=== PATIENT | male | born 1935 | race Two or more races ===

== ENCOUNTER 2023-07-05 19:17 | Inpatient (IN) | payer MEDICARE, OTHER ==
[~2023-07-05] VITALS: Ht 167.6 cm; Wt 67.5 kg
[2023-07-05 20:05] LABS: Basophils # (auto) 0.1 10 ^3/uL (0-0.2); Basophils % (auto) 0.8 % (0.0-2.0); Eosinophils # (auto) 0.4 10 ^3/uL (0-0.8); Eosinophils % (auto) 2.9 % (0.0-7.0); Hematocrit 38.6 % (41.0-53.0); Hemoglobin 12.9 g/dL (13.5-17.5); Lymphocytes # (auto) 1.5 10 ^3/uL (0.4-5.4); Lymphocytes % (auto) 11.3 % (10.0-50.0); Mean Corpuscular Hemoglobin 30.5 pg (28.0-32.0); Mean Corpuscular Hgb Conc. 33.3 g/dL (32.0-36.0); Mean Corpuscular Volume 91.6 fL (80.0-100.0); Monocytes # (auto) 0.7 10 ^3/uL (0-1.3); Neutrophils # (auto) 10.7 10 ^3/uL (1.6-8.6); Red Blood Cells 4.21 10^6/uL (4.5-5.90); Red Cell Distribution Width 15.8 % (11.8-14.3); White Blood Cell 13.4 10^3/uL (4.4-10.8)
[2023-07-05] MEDS ORDERED: PANTOPRAZOLE 40 MG/10 ML VIAL INJ IV ONE (20:15)
[2023-07-05] MEDS ORDERED: SODIUM CHLORIDE 0.9% 1,000 ML IV ONE (20:15)
[2023-07-05] MEDS ORDERED: ONDANSETRON HCL 4 MG/2 ML VIAL IV ONE (20:15)
[2023-07-05] MEDS ORDERED: PANTOPRAZOLE 40mg/50ML NS AE 50 ML IV ONE (20:15)
[2023-07-05 20:19] LABS: Alanine Aminotransferase 19 U/L (7-40); Albumin 3.5 g/dL (3.2-4.8); Alkaline Phosphatase 76 U/L (46-116); Anion Gap 7 (5-15); Aspartate Aminotransferase 17 U/L (13-40); Blood Urea Nitrogen 34 mg/dL (9-23); Calcium 8.5 mg/dL (8.7-10.4); Carbon Dioxide 25 mmol/L (20-30); Chloride 107 mmol/L (98-107); Glucose 124 mg/dL (74-106); Magnesium 1.6 mg/dL (1.6-2.6); Potassium 4.8 mmol/L (3.5-5.1); Sodium 139 mmol/L (136-145)
[2023-07-05 20:20] LABS: Bilirubin, Total 0.7 mg/dL (0.2-1.0); Total Protein 5.8 g/dL (5.7-8.2)
[2023-07-05 20:47] LABS: INR 1.09 (0.9-1.15); Partial Thromboplastin Time 25.2 SEC (24.5-34.5); Prothrombin Time 11.4 sec (9.3-11.8)
[2023-07-05] MEDS ORDERED: IOHEXOL 350 MG/ML 100ML IJ ONE (21:05)
[2023-07-05 21:55] LABS: Blood Alcohol < 3.0 mg/dL (<10); Lipase 35 U/L (12-53)
[2023-07-05 22:03] LABS: Lactic Acid w/Reflex 2.6 mmol/L (0.4-2.0)
[2023-07-05 23:30] VITALS: PULSE 53; RESP 29; O2SAT 100
[2023-07-05 23:39] LABS: Urine Bacteria NONE SEEN /hpf (None Seen); Urine Blood Negative /uL (Negative); Urine Clarity Clear (Clear); Urine Color Yellow (Yellow); Urine Protein, UAD 1+ (Negative); Urine Urobilinogen Normal (Negative); Urine WBC <1 /hpf (0 - 3)
[2023-07-05 23:43] LABS: Amphetamine Screen, Urine Neg (NEGATIVE); Barbiturate Scree,Urine Pos (NEGATIVE); Benzodiazephine Screen, Urine Neg (NEGATIVE); Cannabinoid Screen, Urine Neg (NEGATIVE); Cocaine Screen, Urine Neg (NEGATIVE); Opiate Scree,Urine Neg (NEGATIVE); Phencyclidine Screen, Urine Neg (NEGATIVE)
[2023-07-05 23:46] LABS: Urine Specific Gravity > 1.050 (1.001-1.035)
[2023-07-06] MEDS ORDERED: ONDANSETRON HCL 4 MG/2 ML VIAL IV PRN (00:30)
[2023-07-06] MEDS: SODIUM CHLORIDE 0.9% 1,000 ML IV SCH ×2 (00:30→14:21)
[2023-07-06] MEDS ORDERED: NITROGLYCERIN 0.4 MG SL TAB SL PRN (00:30)
[2023-07-06] MEDS ORDERED: MORPHINE SULFATE INJ 2 MG/ml SYRG IV PRN (00:30)
[2023-07-06 02:38] LABS: Hematocrit 35.1 % (41.0-53.0); Hemoglobin 11.7 g/dL (13.5-17.5)
[2023-07-06] MEDS: PANTOPRAZOLE 40mg/50ML NS AE 50 ML IV SCH ×5 (04:18→21:40)
[2023-07-06 07:55] VITALS: PULSE 81; RESP 19; O2SAT 95
[2023-07-06] MEDS ORDERED: PANTOPRAZOLE 40mg/50ML NS AE 50 ML IV SCH (09:00)
[2023-07-06] MEDS ORDERED: ACETAMINOPHEN 500 MG TAB PO PRN (14:45)
[2023-07-06] MEDS ORDERED: LORazepam 2MG/ML-1ML VIAL IV PRN (14:45)
[2023-07-06] MEDS ORDERED: THIAMINE 100mg/ml INJ (200mg/2ml VIAL) IV ONE (14:45)
[2023-07-06 15:16] VITALS: PULSE 80; RESP 16; RESP 18; O2SAT 95
[2023-07-06] MEDS ORDERED: AMLO1TAB22 PO (16:03)
[2023-07-06] MEDS ORDERED: TAMS0.4C36 PO (16:03)
[2023-07-06] MEDS ORDERED: FERR325T20 PO (16:03)
[2023-07-06] MEDS ORDERED: ESCI1TAB36 PO (16:03)
[2023-07-06] MEDS ORDERED: CYAN100042 PO (16:03)
[2023-07-06 17:00] VITALS: BP 148/77; PULSE 80; RESP 16; TEMP 98.1; O2SAT 98
[2023-07-06] MEDS ORDERED: DEXTROSE (50%) 50ML SYRG IV PRN (17:30)
[2023-07-06 22:00] VITALS: BP_SYST 146; BP_SYST 95; BP_DIAS 146; BP_DIAS 76; PULSE 80; RESP 18; TEMP 98.3; O2SAT 95
[2023-07-06] MEDS ORDERED: ACCU-CHEK COMFORT CURVE STRIP VI SCH (22:00)
[2023-07-06] MEDS ORDERED: InsuLIN REG 1unit/0.01ml Soln (100units/ml) SC SCH (22:00)
[2023-07-07] VITALS (7 sets, daily range): BP systolic 112–128; BP diastolic 51–66; PULSE 70–94; RESP 16–18; TEMP 98–98.5; O2SAT 93–100
[2023-07-07] MEDS: PANTOPRAZOLE 40mg/50ML NS AE 50 ML IV SCH ×3 (02:39→11:30)
[2023-07-07] MEDS: SODIUM CHLORIDE 0.9% 1,000 ML IV SCH ×2 (03:10→17:44)
[2023-07-07 06:31] LABS: Basophils # (auto) 0.1 10 ^3/uL (0-0.2); Basophils % (auto) 0.8 % (0.0-2.0); Eosinophils # (auto) 0.5 10 ^3/uL (0-0.8); Eosinophils % (auto) 6.2 % (0.0-7.0); Hematocrit 30.1 % (41.0-53.0); Hemoglobin 10.2 g/dL (13.5-17.5); Lymphocytes # (auto) 1.5 10 ^3/uL (0.4-5.4); Lymphocytes % (auto) 20.2 % (10.0-50.0); Mean Corpuscular Hemoglobin 31.1 pg (28.0-32.0); Mean Corpuscular Hgb Conc. 33.9 g/dL (32.0-36.0); Mean Corpuscular Volume 91.8 fL (80.0-100.0); Monocytes # (auto) 0.6 10 ^3/uL (0-1.3); Monocytes % (auto) 8.6 % (0.0-12.0); Neutrophils # (auto) 4.7 10 ^3/uL (1.6-8.6); Neutrophils % (auto) 64.2 % (37.0-80.0); Red Blood Cells 3.28 10^6/uL (4.5-5.90); Red Cell Distribution Width 15.4 % (11.8-14.3); White Blood Cell 7.3 10^3/uL (4.4-10.8)
[2023-07-07 06:50] LABS: Alanine Aminotransferase 12 U/L (7-40); Albumin 3.2 g/dL (3.2-4.8); Alkaline Phosphatase 59 U/L (46-116); Anion Gap 6 (5-15); Aspartate Aminotransferase 15 U/L (13-40); BUN/Creatinine Ratio 25.6 (10.0-20.0); Bilirubin, Total 0.7 mg/dL (0.2-1.0); Blood Urea Nitrogen 21 mg/dL (9-23); Carbon Dioxide 24 mmol/L (20-30); Chloride 113 mmol/L (98-107); Glucose 103 mg/dL (74-106); Sodium 143 mmol/L (136-145); Total Protein 5.3 g/dL (5.7-8.2)
[2023-07-07] MEDS ORDERED: LIDOCAINE VISCOUS 2% 15ML UD ONE (09:14)
[2023-07-07] MEDS: THIAMINE 100mg/ml INJ (200mg/2ml VIAL) IV SCH (10:00)
[2023-07-07] MEDS ORDERED: MIDAZOLAM HCL 2MG/2ML 2ml VIAL (1mg/ml) ONE (11:45)
[2023-07-07] MEDS ORDERED: EPINEPHrine HCL 1 MG/10 ML SYRG ONE (11:57)
[2023-07-07] MEDS ORDERED: ONDANSETRON HCL 4 MG/2 ML VIAL IV PRN (12:15)
[2023-07-07] MEDS ORDERED: PROPOFOL 10 MG/ML 20 ML IV ONE (14:09)
[2023-07-07] MEDS ORDERED: FERR325T24 PO (15:57)
[2023-07-07] MEDS ORDERED: TAMS-35 PO (15:57)
[2023-07-07] MEDS ORDERED: ESCI10TA PO (15:57)
[2023-07-07] MEDS ORDERED: AML5T PO (15:57)
[2023-07-07] MEDS ORDERED: CALC1TAB92 PO (15:57)
[2023-07-07] MEDS ORDERED: SENN1TAB85 PO (15:57)
[2023-07-07] MEDS: SUCRALFATE 1 GM/10 ML ORAL SUSP PO SCH ×2 (17:44→21:17)
[2023-07-07] MEDS: PANTOPRAZOLE 40 MG/10 ML VIAL INJ IV SCH (21:14)
[2023-07-08 05:00] VITALS: BP 108/61; PULSE 78; RESP 18; TEMP 98.2; O2SAT 96
[2023-07-08] MEDS: SUCRALFATE 1 GM/10 ML ORAL SUSP PO SCH ×4 (05:43→21:10)
[2023-07-08] MEDS: SODIUM CHLORIDE 0.9% 1,000 ML IV SCH ×2 (05:45→18:12)
[2023-07-08 05:48] LABS: Basophils # (auto) 0.1 10 ^3/uL (0-0.2); Basophils % (auto) 0.9 % (0.0-2.0); Eosinophils # (auto) 0.2 10 ^3/uL (0-0.8); Hematocrit 27.3 % (41.0-53.0); Hemoglobin 9.4 g/dL (13.5-17.5); Lymphocytes # (auto) 1.6 10 ^3/uL (0.4-5.4); Lymphocytes % (auto) 15.5 % (10.0-50.0); Mean Corpuscular Hemoglobin 31.9 pg (28.0-32.0); Mean Corpuscular Hgb Conc. 34.3 g/dL (32.0-36.0); Monocytes # (auto) 0.9 10 ^3/uL (0-1.3); Monocytes % (auto) 8.9 % (0.0-12.0); Neutrophils # (auto) 7.4 10 ^3/uL (1.6-8.6); Neutrophils % (auto) 72.7 % (37.0-80.0); Red Blood Cells 2.94 10^6/uL (4.5-5.90); Red Cell Distribution Width 14.9 % (11.8-14.3); White Blood Cell 10.2 10^3/uL (4.4-10.8)
[2023-07-08 05:53] LABS: Anion Gap 5 (5-15); Carbon Dioxide 25 mmol/L (20-30); Chloride 111 mmol/L (98-107); Potassium 3.9 mmol/L (3.5-5.1); Sodium 141 mmol/L (136-145)
[2023-07-08 05:54] LABS: Calcium 7.9 mg/dL (8.7-10.4)
[2023-07-08 05:59] LABS: BUN/Creatinine Ratio 11.8 (10.0-20.0); Blood Urea Nitrogen 10 mg/dL (9-23); Glucose 117 mg/dL (74-106)
[2023-07-08 08:00] VITALS: BP 102/53; PULSE 65; PULSE 76; RESP 18; TEMP 98.6; O2SAT 96
[2023-07-08 09:00] VITALS: BP 102/53; PULSE 76; RESP 18; TEMP 98.6; O2SAT 96
[2023-07-08] MEDS: THIAMINE 100mg/ml INJ (200mg/2ml VIAL) IV SCH (10:18)
[2023-07-08] MEDS: PANTOPRAZOLE 40 MG/10 ML VIAL INJ IV SCH ×2 (10:18→21:10)
[2023-07-08] MEDS ORDERED: hydrALAZINE HCL 20 MG/ML VL IV PRN (11:30)
[2023-07-08 13:00] VITALS: BP 121/64; PULSE 71; RESP 17; TEMP 98.4; O2SAT 97
[2023-07-08 17:00] VITALS: BP 145/68; PULSE 80; RESP 19; TEMP 97.8; O2SAT 96
[2023-07-08 20:00] VITALS: PULSE 74; RESP 18
[2023-07-09] VITALS (7 sets, daily range): BP systolic 102–150; BP diastolic 53–72; PULSE 65–97; RESP 16–18; TEMP 97.8–98.9; O2SAT 96–100
[2023-07-09] MEDS: SUCRALFATE 1 GM/10 ML ORAL SUSP PO SCH ×4 (05:56→22:15)
[2023-07-09 06:05] LABS: Basophils # (auto) 0.1 10 ^3/uL (0-0.2); Basophils % (auto) 1.9 % (0.0-2.0); Eosinophils # (auto) 0.4 10 ^3/uL (0-0.8); Eosinophils % (auto) 6.1 % (0.0-7.0); Hemoglobin 9.3 g/dL (13.5-17.5); Lymphocytes # (auto) 1.4 10 ^3/uL (0.4-5.4); Lymphocytes % (auto) 19.1 % (10.0-50.0); Mean Corpuscular Hemoglobin 31.5 pg (28.0-32.0); Mean Corpuscular Hgb Conc. 34.4 g/dL (32.0-36.0); Mean Corpuscular Volume 91.4 fL (80.0-100.0); Monocytes # (auto) 0.7 10 ^3/uL (0-1.3); Monocytes % (auto) 10.2 % (0.0-12.0); Neutrophils # (auto) 4.5 10 ^3/uL (1.6-8.6); Neutrophils % (auto) 62.7 % (37.0-80.0); Red Blood Cells 2.96 10^6/uL (4.5-5.90); Red Cell Distribution Width 14.5 % (11.8-14.3); White Blood Cell 7.2 10^3/uL (4.4-10.8)
[2023-07-09] MEDS: SODIUM CHLORIDE 0.9% 1,000 ML IV SCH (08:22)
[2023-07-09] MEDS: PANTOPRAZOLE 40 MG/10 ML VIAL INJ IV SCH ×2 (09:48→22:15)
[2023-07-09] MEDS: THIAMINE 100mg/ml INJ (200mg/2ml VIAL) IV SCH (09:48)
[2023-07-10 05:00] VITALS: BP 114/57; PULSE 70; RESP 18; TEMP 98.6; O2SAT 99
[2023-07-10] MEDS: SUCRALFATE 1 GM/10 ML ORAL SUSP PO SCH ×2 (06:08→10:40)
[2023-07-10 07:37] LABS: Basophils # (auto) 0.1 10 ^3/uL (0-0.2); Basophils % (auto) 1.5 % (0.0-2.0); Eosinophils # (auto) 0.4 10 ^3/uL (0-0.8); Eosinophils % (auto) 6.6 % (0.0-7.0); Hematocrit 27.4 % (41.0-53.0); Hemoglobin 9.7 g/dL (13.5-17.5); Lymphocytes # (auto) 1.2 10 ^3/uL (0.4-5.4); Lymphocytes % (auto) 18.3 % (10.0-50.0); Mean Corpuscular Hemoglobin 31.8 pg (28.0-32.0); Mean Corpuscular Hgb Conc. 35.4 g/dL (32.0-36.0); Mean Corpuscular Volume 89.8 fL (80.0-100.0); Monocytes # (auto) 0.7 10 ^3/uL (0-1.3); Neutrophils # (auto) 4.2 10 ^3/uL (1.6-8.6); Neutrophils % (auto) 63.6 % (37.0-80.0); Nucleated Red Blood Cells % 0.1 %; Red Blood Cells 3.05 10^6/uL (4.5-5.90); Red Cell Distribution Width 14.1 % (11.8-14.3); White Blood Cell 6.7 10^3/uL (4.4-10.8)
[2023-07-10 08:00] VITALS: PULSE 75; PULSE 79; RESP 18; O2SAT 96
[2023-07-10 09:00] VITALS: BP 115/77; PULSE 79; RESP 18; TEMP 97.7; O2SAT 96
[2023-07-10] MEDS: PANTOPRAZOLE 40 MG/10 ML VIAL INJ IV SCH (10:40)
[2023-07-10] MEDS: THIAMINE 100mg/ml INJ (200mg/2ml VIAL) IV SCH (10:41)
[2023-07-10] MEDS ORDERED: PANT40TA2 PO (11:27)
[2023-07-10] MEDS ORDERED: SUCR1SUS26 PO (11:27)
[2023-07-10 13:00] VITALS: BP 147/75; PULSE 102; RESP 18; TEMP 97.2; O2SAT 95
[2023-07-10 13:30] VITALS: BP 147/75; PULSE 104; RESP 18; TEMP 97.2; O2SAT 95
[2023-07-10 15:25] VITALS: BP 147/75; PULSE 104; RESP 18; TEMP 97.2; O2SAT 95
== END 2023-07-10 16:04 | disposition home or self-care (01) | DRG 374 ==
LOC: EDBD 19:17 → ER 19:17 → TELE 07-06 00:26 → TELE-WESTW 07-06 15:12
PROVIDERS: ADMIT Internal Medicine; ATTEND Internal Medicine
PROC: 0DB78ZX Excision of Stomach, Pylorus, Via Natural or Artificial Opening Endoscopic, Diagnostic (ICD-10-PCS; principal; 2023-07-07 11:40)
DX: C16.9 Malignant neoplasm of stomach, unspecified (principal); K25.4 Chronic or unspecified gastric ulcer with hemorrhage; K44.9 Diaphragmatic hernia without obstruction or gangrene; I10 Essential (primary) hypertension; D64.9 Anemia, unspecified; K80.20 Calculus of gallbladder without cholecystitis without obstruction; K21.9 Gastro-esophageal reflux disease without esophagitis; F10.10 Alcohol abuse, uncomplicated; Z79.82 Long term (current) use of aspirin
CPT/HCPCS: 36415; 71045; 71260; 74177; 80048; 80053; 80307; 80320; 81001; 82270; 83540; 83550; 83605; 83690; 83735; 83880; 84484; 85014; 85018; 85025; 85610; 85730; 86850; 86900; 86901; 93005; 93306; 97110; 97116; 97163; 97530; 99291; C9113; G0378; J2250; J2405; J2704

== ENCOUNTER 2024-04-08 10:41 | Day surgery (SDC) | payer MEDICARE, OTHER ==
[2024-04-06 11:08] LABS: Basophils # (auto) 0.1 10 ^3/uL (0-0.2); Eosinophils # (auto) 0.2 10 ^3/uL (0-0.8); Eosinophils % (auto) 3.3 % (0.0-7.0); Hematocrit 41.6 % (41.0-53.0); Hemoglobin 14.1 g/dL (13.5-17.5); Lymphocytes # (auto) 1.5 10 ^3/uL (0.4-5.4); Lymphocytes % (auto) 23.9 % (10.0-50.0); Mean Corpuscular Hemoglobin 30.9 pg (28.0-32.0); Mean Corpuscular Hgb Conc. 33.8 g/dL (32.0-36.0); Mean Corpuscular Volume 91.5 fL (80.0-100.0); Monocytes # (auto) 0.5 10 ^3/uL (0-1.3); Monocytes % (auto) 8.2 % (0.0-12.0); Neutrophils # (auto) 3.9 10 ^3/uL (1.6-8.6); Neutrophils % (auto) 63.6 % (37.0-80.0); Nucleated Red Blood Cells % 0.1 %; Red Blood Cells 4.55 10^6/uL (4.5-5.90); White Blood Cell 6.1 10^3/uL (4.4-10.8)
[2024-04-06 11:27] LABS: INR 1.06 (0.9-1.15); Partial Thromboplastin Time 27.1 SEC (24.5-34.5); Prothrombin Time 11.2 sec (9.3-11.8)
[2024-04-06 11:43] LABS: Alanine Aminotransferase 13 U/L (7-40); Alkaline Phosphatase 78 U/L (46-116); Anion Gap 6 (5-15); Aspartate Aminotransferase 13 U/L (13-40); BUN/Creatinine Ratio 21.8 (10.0-20.0); Blood Urea Nitrogen 17 mg/dL (9-23); Calcium 9.2 mg/dL (8.5-10.1); Carbon Dioxide 24 mmol/L (20-30); Chloride 111 mmol/L (98-107); Glucose 102 mg/dL (74-106); Potassium 3.8 mmol/L (3.5-5.1); Sodium 141 mmol/L (136-145)
[2024-04-06 11:44] LABS: Bilirubin, Total 0.8 mg/dL (0.2-1.0); Total Protein 6.4 g/dL (5.7-8.2)
[~2024-04-08] VITALS: Ht 167.6 cm; Wt 64.4 kg
[~2024-04-08 10:41] MED LIST: ACE3T PO; AML5T PO; CALC1TAB92 PO; CYAN100042 PO; ESCI10TA PO; FERR325T24 PO; GLUC500T48 PO; PANT40TA2 PO; SUCR1SUS26 PO; TAMS-35 PO; TEST200I32 IJ; TEST30SO2 TD
[2024-04-08] MEDS ORDERED: SODIUM CHLORIDE LOCK 10 ML ONE (12:03)
[2024-04-08 12:26] VITALS: TEMP 97.7
[2024-04-08 14:09] VITALS: PULSE 74; RESP 12; O2SAT 97
[2024-04-08] MEDS: LIDOCAINE VISCOUS 2% 15ML UD ONE (14:11)
[2024-04-08] MEDS: diphenhdrAMINE HCL 50 MG/1 ML VL ONE (14:13)
[2024-04-08] MEDS: fentaNYL CITRATE 100 MCG/2 ML VL ONE (14:13)
[2024-04-08] MEDS: MIDAZOLAM HCL 5 MG/ML-1ML VIAL ONE (14:13)
[2024-04-08 14:26] VITALS: O2SAT 97
[2024-04-08 15:01] VITALS: BP 144/70; PULSE 72; RESP 14; O2SAT 96
== END 2024-04-08 15:07 | disposition home or self-care (01) ==
LOC: GI 10:41
PROVIDERS: ATTEND Internal Medicine Gastroenterology
DX: C16.3 Malignant neoplasm of pyloric antrum (principal); K21.9 Gastro-esophageal reflux disease without esophagitis; I10 Essential (primary) hypertension; K44.9 Diaphragmatic hernia without obstruction or gangrene; M19.90 Unspecified osteoarthritis, unspecified site; Z86.2 Personal history of diseases of the blood and blood-forming organs and certain disorders involving the immune mechanism; Z87.11 Personal history of peptic ulcer disease; Z80.8 Family history of malignant neoplasm of other organs or systems; Z80.42 Family history of malignant neoplasm of prostate; Z79.899 Other long term (current) drug therapy; Z98.890 Other specified postprocedural states
CPT/HCPCS: 36415; 43239; 80053; 85025; 85610; 85730; 88305; J1200; J2250; J3010; J7030

== ENCOUNTER 2024-08-30 07:37 | Inpatient (IN) | payer MEDICARE, OTHER ==
[~2024-08-30] VITALS: Ht 152.4 cm; Wt 51.4 kg
--- NOTE | 2024-08-30 07:45 | ED.PDOC ---
History of Present Illness HPI Comments 89-year-old male with PMHx Stomach Cancer presents with a chief complaint of dizziness. Patient states that he is undergoing chemotherapy for his stomach cancer and last had treatment on Thursday (08/28/2024). Patient describes his dizziness as the room is spinning. Per EMS, patient is orthostatic positive. Hollis willis is alert and oriented x 4. Time Seen by MD: 07:36 Reviewed Notes: Medications, Allergies Allergies: Coded Allergies: NO KNOWN ALLERGIES (Unverified , 07/05/23) Home Meds Active Scripts Pantoprazole Sodium Sesquihydr (Protonix) 40 Mg Tab, 40 MG PO BID for 30 Days, #60 TAB 2 Refills Prov:MISHEL PERRY MD 07/10/23 Sucralfate (CARAFATE SUSP) 1 Gm/10 Ml Ss, 1 GM PO QIDACHS for 30 Days, #120 ML 2 Refills Prov:MISHEL PERRY MD 07/10/23 Reported Medications Testosterone (Testosterone Topical Solu) 30 Mg/Act [place], 50 MG TD DAILY, ML 04/06/24 Testosterone Cypionate (Testosterone Cypionate) 200 Mg/Ml Inj, 0.5 MG IJ DAILY, INJ 04/06/24 Acetaminophen W/ Codeine (Tylenol W/Cod #3) 1 Tab Tb, 1 TAB PO TIDP, TAB 04/06/24 Glucosamine Hydrochloride (GLUCOSAMINE) 500 Mg Tab, 500 MG PO DAILY, TAB 04/06/24 Calcium Carbonate (Calcium) 600 Mg Tab, 1 TAB PO BID, % 07/07/23 Tamsulosin Hcl (Flomax) 0.4 Mg Cap, 1 CAP PO QPM, % 07/07/23 Ferrous Sulfate (Ferrous Sulfate) 325 Mg Tab, 1 TAB PO BIDWM, % 07/07/23 Escitalopram Oxalate (Lexapro) 10 Mg Tab, 1 TAB PO DAILY, % 07/07/23 Amlodipine Besylate (NORVASC TABLET) 5 Mg Tb, 1 TAB PO DAILY, % 07/07/23 Cyanocobalamin (Vitamin B-12) 1,000 Mcg Tab, 1 TAB PO DAILY 07/06/23 Information Source: Patient Mode of Arrival: EMS Severity: Moderate Timing: Hours Duration: Since onset Prehospital treatment: None Past Medical History PAST MEDICAL HISTORY: Cancer (STOMACH) Family History Family History: Reviewed,noncontributory to illness Social History Smoker: Non-Smoker Alcohol: Denies ETOH Use Drugs: Denies Drug Use Lives In: Home Constitutional: denies: chills, diaphoresis, fatigue, fever, malaise, sweats, weakness, others EENTM: denies: blurred vision, double vision, ear bleeding, ear discharge, ear drainage, ear pain, ear ringing, eye pain, eye redness, hearing loss, mouth pain, mouth swelling, nasal discharge, nose bleeding, nose congestion, nose pain, photophobia, tearing, throat pain, throat swelling, voice changes, others Respiratory: denies: cough, hemoptysis, orthopnea, SOB at rest, shortness of breath, SOB with excertion, stridor, wheezing, others Cardiovascular: denies: chest pain, dizzy spells, diaphoresis, Dyspnea on exertion, edema, irregular heart beat, left arm pain, lightheadedness, palpitations, PND, syncope, others Gastrointestinal: denies: abdomen distended, abdominal pain, blood streaked bowels, constipated, diarrhea, dysphagia, difficulty swallowing, hematemesis, melena, nausea, poor appetite, poor fluid intake, rectal bleeding, rectal pain, vomiting, others Genitourinary: denies: burning, dysuria, flank pain, frequency, hematuria, incontinence, penile discharge, penile sore, pain, testicle pain, testicle swelling, urgency, others Neurological: reports: dizziness; denies: fainting, headache, left sided numbness, left sided weakness, numbness, paresthesia, pre-existing deficit, right sided numbness, right sided weakness, seizure, speech problems, tingling, tremors, weakness, others Musculoskeletal: denies: back pain, gout, joint pain, joint swelling, muscle pain, muscle stiffness, neck pain, others Integumetry: denies: bruises, change in color, change in hair/nails, dryness, laceration, lesions, lumps, rash, wounds, others Allergic/Immunocompromised: denies: Difficulty Healing, Frequent Infections, Hives, Itching, others Hematologic/Lymphatic: denies: anemia, blood clots, easy bleeding, easy bruising, swollen glands, others Endocrine: denies: excessive hunger, excessive sweating, excessive thirst, excessive urination, flushing, intolerance to cold, intolerance to heat, unexplained weight gain, unexplained weight loss, others Psychiatric: denies: anxiety, bipolar disorder, depression, hopeless, panic disorder, schizophrenia, sleepless, suicidal, others All Other Systems: Reviewed and Negative Physical Exam General Appearance: No Apparent Distress, Normal HEENT: Normal ENT Inspection, Pharynx Normal, TMs Normal Neck: Full Range of Motion, Non-Tender, Normal, Normal Inspection Respiratory: Chest Non-Tender, Lungs Clear, No Accessory Muscle Use, No Respiratory Distress, Normal Breath Sounds Cardiovascular: No Edema, No JVD, No Murmur, No Gallop, Normal Peripheral Pulses, Regular Rate/Rhythm Breast Exam: Deferred Gastrointestinal: No Organomegaly, Non Tender, No Pulsatile Mass, Normal Bowel Sounds, Soft Genitalia: Deferred Pelvic: Deferred Rectal: Deferred Extremities: No calf tenderness, Normal capillary refill, Normal inspection, Normal range of motion, Non-tender, No pedal edema Musculoskeletal : Apperance: Normal Neurologic: Alert, bricklayer helper II-XII nml as Tested, No Motor Deficits, Normal Affect, Normal Mood, No Sensory Deficits Cerebellar Function: Normal Reflexes: Normal Skin: Dry, Normal Color, Warm Lymphatic: No Adenopathy Was a procedure done? Was a procedure done?: No Differential Dx Considerations may include: Electrolyte abnormalities, infectious etiology, worsening malignancy, dehydration, anemia, ACS X-Ray, Labs, Meds, VS Vital Signs Date Time Temp Pulse Resp B/P (MAP) Pulse Ox O2 Delivery O2 Flow Rate FiO2 08/30/24 08:00 97.9 84 16 134/62 (86) 98 97.9 08/30/24 08:00 84 16 98 Room Air* 0 N/A Nasal Cannula* 08/30/24 07:41 92 08/30/24 07:40 117/69 81/55 08/30/24 07:40 97.2 90 18 135/74 (94) 99 Lab Test 08/30/24 11:00 08/30/24 10:24 08/30/24 09:03 08/30/24 07:58 Range/Units Troponin I High Sensitivity Pending 7 8 </=54 ng/L Urine Color Yellow Yellow Urine Clarity Clear Clear Urine pH 6.0 5.0-9.0 Urine Specific [place] 1.027 1.001-1.035 Urine Protein Trace H Negative Urine Ketones 3+ H Negative Urine Blood Negative Negative /uL Urine Nitrite Negative Negative Urine Bilirubin Negative Negative Urine Urobilinogen Normal Negative mg/dL Urine Leukocyte Esterase 1+ Negative /uL Urine RBC 4 0 - 3 /hpf Urine WBC 14 0 - 3 /hpf Urine Squamous Epithelial Cells Few <5 /hpf Urine Bacteria None seen None Seen /hpf Urine Hyaline Casts Few 0 - 2 /lpf Urine Mucus Few None Seen Urine Glucose Normal Normal mg/dL White Blood Count 4.6 4.4-10.8 10^3/uL Red Blood Count 3.82 L 4.5-5.90 10^6/uL Hemoglobin 11.4 L 13.5-17.5 g/dL Hematocrit 34.0 L 41.0-53.0 % Mean Corpuscular Volume 89.0 80.0-100.0 fL Mean Corpuscular Hemoglobin 30.0 28.0-32.0 pg Mean Corpuscular Hemoglobin Concent 33.7 32.0-36.0 g/dL Red Cell Distribution Width 13.9 11.8-14.3 % Platelet Count 208 140-450 10^3/uL Mean Platelet Volume 7.8 6.9-10.8 fL Neutrophils (%) (Auto) 61.3 37.0-80.0 % Lymphocytes (%) (Auto) 22.8 10.0-50.0 % Monocytes (%) (Auto) 13.7 H 0.0-12.0 % Eosinophils (%) (Auto) 1.7 0.0-7.0 % Basophils (%) (Auto) 0.5 0.0-2.0 % Neutrophils # (Auto) 2.8 1.6-8.6 10 ^3/uL Lymphocytes # (Auto) 1.0 0.4-5.4 10 ^3/uL Monocytes # (Auto) 0.6 0-1.3 10 ^3/uL Eosinophils # (Auto) 0.1 0-0.8 10 ^3/uL Basophils # (Auto) 0 0-0.2 10 ^3/uL Nucleated Red Blood Cells 0.0 % Sodium Level 142 136-145 mmol/L Potassium Level 3.7 3.5-5.1 mmol/L Chloride Level 110 H 98-107 mmol/L Carbon Dioxide Level 20 20-31 mmol/L Anion Gap 12 5-15 Blood Urea Nitrogen 15 9-23 mg/dL Creatinine 0.79 0.700-1.30 mg/dL Glomerular Filtration Rate Calc 85 >90 mL/min BUN/Creatinine Ratio 19.0 10.0-20.0 Serum Glucose 107 H 74-106 mg/dL Calcium Level 8.6 L 8.7-10.4 mg/dL Current Medications Medications (Trade) Dose Ordered Sig/Jeronimo Route Start Time Stop Time Status Last Admin Sodium Chloride 1,000 ml @ 1,000 mls/hr Q1H ONCE IV 08/30/24 07:45 08/30/24 08:44 DC 08/30/24 09:25 Time of 1ST Reevaluation: 08:06 Reevaluation 1ST: Unchanged Patient Education/Counseling: Diagnosis, Treatment, Prognosis Family Education/Counseling: No Family Present Departure 1 Departure Time of Disposition: 11:33 (Patient was worsening weakness in the setting chemotherapy. Patient is unable to tolerate p.o. CBC and BMP are fairly unremarkable. Patient's chest x-ray was benign as well. We will admit patient for further workup) Impression: Primary Impression: Projectile vomiting with nausea Additional Impression: Weakness Disposition: ADMITTED INPATIENT Admit to: Med Surg Condition: Serious Critical Care Note Critical Care Time?: No Stability Stability form required: No I personally scribed for MICHEAL HOROWITZ MD ([email or web address]) on 08/30/24 at 07:44. Electronically submitted by Lambert Tapia ([email or web address]). MICHEAL HOROWITZ MD Aug 30, 2024 07:44
[2024-08-30 08:00] VITALS: PULSE 84; RESP 16; O2SAT 98
--- NOTE | 2024-08-30 08:24 | DVH ---
EXAM: XY CHEST PORTABLE Indication: NEAR SYNCOPE Technique: Single frontal view of the chest was obtained Comparison: XY CHEST PORTABLE on DOS: 07/05/23 FINDINGS: Lines and Tubes: None Lungs: No focal consolidation. Pleura: No effusion. No pneumothorax. Cardiomediastinal contours: Unremarkable Bones: No acute osseous abnormality. IMPRESSION: No acute cardiopulmonary disease.
[2024-08-30 08:29] LABS: Basophils # (auto) 0 10 ^3/uL (0-0.2); Basophils % (auto) 0.5 % (0.0-2.0); Eosinophils # (auto) 0.1 10 ^3/uL (0-0.8); Eosinophils % (auto) 1.7 % (0.0-7.0); Hemoglobin 11.4 g/dL (13.5-17.5); Lymphocytes % (auto) 22.8 % (10.0-50.0); Mean Corpuscular Hgb Conc. 33.7 g/dL (32.0-36.0); Monocytes # (auto) 0.6 10 ^3/uL (0-1.3); Monocytes % (auto) 13.7 % (0.0-12.0); Neutrophils # (auto) 2.8 10 ^3/uL (1.6-8.6); Neutrophils % (auto) 61.3 % (37.0-80.0); Platelet Count (auto) 208 10^3/uL (140-450); Red Blood Cells 3.82 10^6/uL (4.5-5.90); Red Cell Distribution Width 13.9 % (11.8-14.3); White Blood Cell 4.6 10^3/uL (4.4-10.8)
[2024-08-30 08:36] LABS: Chloride 110 mmol/L (98-107); Potassium 3.7 mmol/L (3.5-5.1); Sodium 142 mmol/L (136-145)
[2024-08-30 08:37] LABS: Anion Gap 12 (5-15); Calcium 8.6 mg/dL (8.7-10.4); Carbon Dioxide 20 mmol/L (20-31)
[2024-08-30 08:42] LABS: Blood Urea Nitrogen 15 mg/dL (9-23); Glucose 107 mg/dL (74-106)
[2024-08-30] MEDS: SODIUM CHLORIDE 0.9% 1,000 ML IV ONE (09:25)
[2024-08-30 10:32] LABS: Urine Bacteria None Seen /hpf (None Seen)
[2024-08-30 10:43] LABS: Urine Blood Negative /uL (Negative); Urine Clarity Clear (Clear); Urine Color Yellow (Yellow); Urine Hyaline Cast FEW /lpf (0 - 2); Urine Mucus FEW (None Seen); Urine Protein, UAD TRACE (Negative); Urine Specific Gravity 1.027 (1.001-1.035); Urine Urobilinogen Normal (Negative); Urine WBC 14 /hpf (0 - 3)
[2024-08-30] MEDS ORDERED: DOCUSATE SOD 100 MG CAP PO PRN (12:15)
[2024-08-30] MEDS ORDERED: ACETAMINOPHEN 325 MG TAB PO PRN (12:15)
[2024-08-30] MEDS ORDERED: MAALOX PLUS or MAALOX 30 ML PO PRN (12:15)
[2024-08-30] MEDS ORDERED: MORPHINE SULFATE INJ 2 MG/ml SYRG IV PRN (12:15)
[2024-08-30] MEDS ORDERED: LORazepam 0.5 MG TAB PO PRN (12:15)
--- NOTE | 2024-08-30 12:45 | DVHHP2 ---
History of Present Illness Reason for Visit: General Weakness History of Present Illness 89 yo with history stomach cancer currently on chemo last treatment two days prior patient comes to the ed with weakness dizziness and inability to function at home patient Heme/Onc: Cancer Review of Systems Constitutional: Yes: Fever, Weakness; No: Chills, Sweats, Malaise, Other Eyes: No: Pain, Vision change, Conjunctivae inflammation, Eyelid inflammation, Other, Redness ENT: No: Ear pain, Ear discharge, Nose pain, Nose discharge, Nose congestion, Mouth pain, Mouth swelling, Throat pain, Throat swelling, Other Respiratory: Shortness of breath; No: Cough, Dry, SOB with excertion, Wheezing, Hemoptysis, Pleuritic Pain, Sputum, Wheezing, Other Cardiovascular: No: Chest Pain, Palpitations, Orthopnea, Paroxysmal Noc. Dyspnea, Edema, Lt Headedness, Other Gastrointestinal: No: Nausea, Vomiting, Abdominal Pain, Diarrhea, Constipation, Melena, Hematochezia, Other Genitourinary: No Dysuria, No Frequency, No Incontinence, No Hematuria, No Retention, No Other Musculoskeletal: No: other, neck pain, shoulder pain, arm pain, back pain, hand pain, leg pain, foot pain Skin: No: Rash, Lesions, Jaundice, Bruising, Other Neurological: Weakness; No: Numbness, Incoordination, Change in speech, Confusion, Seizures, Other Allergies: Coded Allergies: NO KNOWN ALLERGIES (Unverified , 07/05/23) Exam Vital Signs Vital Signs Date Time Temp Pulse Resp B/P (MAP) Pulse Ox O2 Delivery O2 Flow Rate FiO2 08/30/24 08:00 97.9 84 16 134/62 (86) 98 97.9 08/30/24 08:00 Room Air* 0 N/A Nasal Cannula* General Appearance: Alert, Oriented X3, Cooperative HEENT: Atraumatic, PERRLA, EOMI Respiratory: Clear to auscultation, Normal air movement Cardiovascular: Regular rate, Normal S1, Normal S2 Abdominal: Normal bowel sounds, Soft, No tenderness Extremities: No clubbing, No cyanosis Skin: No breakdown Neuro: Normal gait, Normal speech Psych/Mental Status: Mood NL Labs/Xrays Labs Test 08/30/24 11:42 08/30/24 11:00 08/30/24 10:24 08/30/24 07:58 Range/Units POC Glucose 93 70-106 mg/dl Troponin I High Sensitivity 9 </=54 ng/L Urine Color Yellow Yellow Urine Clarity Clear Clear Urine pH 6.0 5.0-9.0 Urine Specific [place] 1.027 1.001-1.035 Urine Protein Trace H Negative Urine Ketones 3+ H Negative Urine Blood Negative Negative /uL Urine Nitrite Negative Negative Urine Bilirubin Negative Negative Urine Urobilinogen Normal Negative mg/dL Urine Leukocyte Esterase 1+ Negative /uL Urine RBC 4 0 - 3 /hpf Urine WBC 14 0 - 3 /hpf Urine Squamous Epithelial Cells Few <5 /hpf Urine Bacteria None seen None Seen /hpf Urine Hyaline Casts Few 0 - 2 /lpf Urine Mucus Few None Seen Urine Glucose Normal Normal mg/dL White Blood Count 4.6 4.4-10.8 10^3/uL Red Blood Count 3.82 L 4.5-5.90 10^6/uL Hemoglobin 11.4 L 13.5-17.5 g/dL Hematocrit 34.0 L 41.0-53.0 % Mean Corpuscular Volume 89.0 80.0-100.0 fL Mean Corpuscular Hemoglobin 30.0 28.0-32.0 pg Mean Corpuscular Hemoglobin Concent 33.7 32.0-36.0 g/dL Red Cell Distribution Width 13.9 11.8-14.3 % Platelet Count 208 140-450 10^3/uL Mean Platelet Volume 7.8 6.9-10.8 fL Neutrophils (%) (Auto) 61.3 37.0-80.0 % Lymphocytes (%) (Auto) 22.8 10.0-50.0 % Monocytes (%) (Auto) 13.7 H 0.0-12.0 % Eosinophils (%) (Auto) 1.7 0.0-7.0 % Basophils (%) (Auto) 0.5 0.0-2.0 % Neutrophils # (Auto) 2.8 1.6-8.6 10 ^3/uL Lymphocytes # (Auto) 1.0 0.4-5.4 10 ^3/uL Monocytes # (Auto) 0.6 0-1.3 10 ^3/uL Eosinophils # (Auto) 0.1 0-0.8 10 ^3/uL Basophils # (Auto) 0 0-0.2 10 ^3/uL Nucleated Red Blood Cells 0.0 % Sodium Level 142 136-145 mmol/L Potassium Level 3.7 3.5-5.1 mmol/L Chloride Level 110 H 98-107 mmol/L Carbon Dioxide Level 20 20-31 mmol/L Anion Gap 12 5-15 Blood Urea Nitrogen 15 9-23 mg/dL Creatinine 0.79 0.700-1.30 mg/dL Glomerular Filtration Rate Calc 85 >90 mL/min BUN/Creatinine Ratio 19.0 10.0-20.0 Serum Glucose 107 H 74-106 mg/dL Calcium Level 8.6 L 8.7-10.4 mg/dL Assessment/Plan Assessment/Plan Admit Med/Surg General Weakness History Stomach Cancer On Current Chemo Last treatment 2 days ago Complaints of Weakness Hypotension Orthostatic Positive IV hydration Plan discussed with: Patient Problem List: (1) Weakness (2) N&V (nausea and vomiting) (3) Gastric adenocarcinoma (4) Projectile vomiting with nausea Date of Service: Aug 30, 2024 Billing Provider: VINICIO EASLEY MD Common Visit Codes: [id number] INP/OBS CARE (HIGH) VINICIO EASLEY MD Aug 30, 2024 12:45
[2024-08-30] MEDS: SODIUM CHLORIDE 0.9% 1,000 ML IV SCH (13:00)
[2024-08-30] MEDS ORDERED: ACETAMINOPHEN/CODEINE#3 (300/30mg) TAB PO SCH (14:00)
[2024-08-30] MEDS: SUCRALFATE 1 GM/10 ML ORAL SUSP PO SCH (16:31)
[2024-08-30] MEDS: FERROUS SULFATE 325mg EC TAB PO SCH (17:41)
[2024-08-30] MEDS: TAMSULOSIN HYDROCHLORIDE 0.4 MG CAP PO SCH (17:42)
[2024-08-30] MEDS: cefTRIAXone 1GM/50ML D5W 50 ML IV SCH (19:34)
[2024-08-30 19:46] VITALS: PULSE 95; RESP 16; O2SAT 95
[2024-08-30] MEDS: CALCIUM CARBONATE 600 MG PO SCH (22:00)
[2024-08-30 22:12] VITALS: BP 127/64; PULSE 94; RESP 16; TEMP 98.5; O2SAT 98
[2024-08-30] MEDS: PANTOPRAZOLE 40 MG TAB PO SCH (22:48)
[2024-08-30 23:09] VITALS: BP 127/64; PULSE 94; RESP 18; TEMP 98; O2SAT 98
[2024-08-31 00:13] VITALS: BP 134/75; PULSE 80; RESP 16; TEMP 98.4; O2SAT 98
[2024-08-31] MEDS: HYDROcodone-ACET 5/325MG TAB PO PRN (03:22)
[2024-08-31 05:00] VITALS: BP 116/61; PULSE 93; RESP 16; TEMP 98.4; O2SAT 93
[2024-08-31 07:06] LABS: Hematocrit 32.7 % (41.0-53.0); Hemoglobin 11.2 g/dL (13.5-17.5); Mean Corpuscular Hemoglobin 29.7 pg (28.0-32.0); Mean Corpuscular Hgb Conc. 34.2 g/dL (32.0-36.0); Mean Corpuscular Volume 86.9 fL (80.0-100.0); Platelet Count (auto) 216 10^3/uL (140-450); Red Blood Cells 3.76 10^6/uL (4.5-5.90); White Blood Cell 3.6 10^3/uL (4.4-10.8)
[2024-08-31 07:11] LABS: Anion Gap 11 (5-15); Carbon Dioxide 22 mmol/L (20-31); Chloride 109 mmol/L (98-107); Potassium 3.4 mmol/L (3.5-5.1); Sodium 142 mmol/L (136-145)
[2024-08-31 07:12] LABS: Band Neutrophils % (manual) 0; Basophils % (manual) 0 (0.0-2.0); Blast Cells 0; Calcium 8.9 mg/dL (8.7-10.4); Eosinophils % (manual) 0 (0-7); Metamyelocytes % 0; Myelocytes % 0; Promyelocytes % 0; Reactive Lymphocytes 0
[2024-08-31 07:17] LABS: BUN/Creatinine Ratio 22.4 (10.0-20.0); Blood Urea Nitrogen 15 mg/dL (9-23); Glucose 111 mg/dL (74-106)
[2024-08-31 07:53] LABS: Lymphocytes % (manual) 30 (10.0-50.0); Monocytes % (manual) 20 (0-12); Platelet Estimate Adequate
[2024-08-31 07:54] LABS: RBC Morphology Normal
[2024-08-31 09:00] VITALS: BP 109/63; PULSE 75; RESP 19; TEMP 98.7; O2SAT 97
[2024-08-31] MEDS: GLUCOSAMINE HYDROCHLORIDE PO SCH (10:00)
[2024-08-31] MEDS: ESCITALOPRAM OXALATE 10 MG PO SCH (10:00)
[2024-08-31] MEDS ORDERED: TESTOSTERONE 50 MG TD SCH (10:00)
[2024-08-31] MEDS ORDERED: CYANOCOBALAMIN 500 MCG TAB GT SCH (10:00)
[2024-08-31] MEDS ORDERED: TESTOSTERONE CYPIONATE INJ SCH (10:00)
[2024-08-31 11:02] LABS: % Iron Saturation 34.3 % (20-55)
[2024-08-31] MEDS: POTASSIUM CHL 20 Meq TABLET PO ONE (11:59)
[2024-08-31] MEDS: CYANOCOBALAMIN 500 MCG TAB PO SCH (11:59)
[2024-08-31] MEDS: ONDANSETRON HCL 4 MG/2 ML VIAL IV PRN (12:18)
[2024-08-31] MEDS: LACTATED RINGER'S 1,000 ML IV ONE (12:18)
[2024-08-31 13:00] VITALS: BP 100/58; PULSE 85; RESP 17; TEMP 98.5; O2SAT 94
--- NOTE | 2024-08-31 14:23 | ECG ---
[facility] Test Date: 2024-08-30 Test Time: 07:41:10 Pat Name: MINISTERIO ALVARADO Department: ER Room: 0278 A Gender: M Etl Analyst: LINCOLN : 1935 Requested By: MICHEAL HOROWITZ Order Number: [id number] Reading MD: Kraig Molina Measurements Intervals [place] Rate: 92 P: 82 MD: 199 QRS: 66 QRSD: 134 T: 59 QT: 388 QTc: 481 Interpretive Statements Sinus rhythm Ventricular premature complex Right bundle branch block Electronically Signed On 09-02-2024 17:18:26 PST by Kraig Molina Please click the below link to view image of tracing.
[2024-08-31] MEDS ORDERED: PROCHLORPERAZINE MALEATE 10 MG TAB PO PRN (15:30)
--- NOTE | 2024-08-31 16:54 | DVHPNRES ---
Progress Note Date Seen: Aug 31, 2024 Resident Creating Document: KALI HOLMANJASMYN RESIDENT Medical Necessity Reason Pt with a Central, PICC or Fol: No Subjective Review of Systems Patient is a 89-year-old male with a past medical history of 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 Patient reported that tell about 3 weeks ago he was having dark-colored stools since then he started having yellow stools in consistency gradually started getting worse with patient having diarrhea for about past 10 days. Patient reported that his last chemotherapy was done 2 days ago. Patient did not report fever, chills. Patient reports decreased appetite and feeling nauseous and reflux. CBC showed mild anemia, BMP showed mild hypokalemia. Past medical history: Patient was admitted to the hospital in July 01, 2023 with a melena and blood in vomitus following which EGD was done patient was diagnosed with gastric adenocarcinoma on chemotherapy. Another upper endoscopy was done in March 31, 2024 which showed persistent progressive large pre-pyloric antral ulcerated mass with a raised edges which was causing partial gastric outlet obstruction. Past surgical history: Endoscopy x2 Social history: Patient denies smoking, alcohol, drug use Review of systems Patient seen and examined at the bedside. Patient is alert and oriented to time, place and person. Patient reports feeling nauseous and decreased appetite. Patient reports multiple bouts of diarrhea, no blood in stool, watery, yellowish in color. Patient reports no fever, chills. Patient reports feeling weak but is able to walk without support to the restroom and back. Patient's blood pressure at the time of examination 109/63 mmHg, pulse 75 per minute regular, saturating 95% at room air. Objective vital signs Vital Sign Date Time Temp Pulse Resp B/P (MAP) Pulse Ox O2 Delivery O2 Flow Rate FiO2 08/31/24 13:00 98.5 85 17 100/58 (72) 94 98.5 08/30/24 23:09 Room Air* 0 21 Total Intake and Output 08/30/24 08/30/24 08/31/24 15:00 23:00 07:00 Intake Total 1150 ml 425 ml 240 ml Balance 1150 ml 425 ml 240 ml medications Current Medications Medications Dose Ordered Sig/Jeronimo Route Start Time Stop Time Status Last Admin Dose Admin Acetaminophen/ Codeine Phosphate 1 tab TIDP PO 08/30/24 14:00 Hold Pantoprazole Sodium 40 mg BID PO 08/30/24 22:00 08/31/24 10:46 40 MG Sucralfate 1 gm QIDACHS PO 08/30/24 17:00 08/31/24 11:19 1 GM Tamsulosin HCl 0.4 mg QPM PO 08/30/24 18:00 08/30/24 17:42 0.4 MG Patient Own Medication 1 tab BID PO 08/30/24 22:00 Patient Own Medication 1 tab DAILY PO 08/31/24 10:00 Ferrous Sulfate 325 mg BIDBRS PO 08/30/24 18:00 08/31/24 08:18 325 MG Patient Own Medication 500 mg DAILY PO 08/31/24 10:00 Patient Own Medication 50 mg DAILY TD 08/31/24 10:00 Hold Patient Own Medication 0.5 mg DAILY INJ 08/31/24 10:00 Hold Lorazepam 0.5 mg Q6HP PRN PO 08/30/24 12:15 Al Hydrox/Mg Hydrox/Simethicone 30 ml Q6HP PRN PO 08/30/24 12:15 Docusate Sodium 100 mg BIDPRN PRN PO 08/30/24 12:15 Acetaminophen 650 mg Q6HP PRN PO 08/30/24 12:15 Acetaminophen/ Hydrocodone Bitart 1 tab Q4HP PRN PO 08/30/24 12:15 08/31/24 10:46 1 TAB Ondansetron HCl 4 mg Q4HP PRN IV 08/30/24 12:15 08/31/24 12:18 4 MG Morphine Sulfate 2 mg Q4HPRN PRN IV 08/30/24 12:15 Ceftriaxone Sodium 50 ml @ 100 mls/hr DAILY@09 IV 08/30/24 19:15 08/31/24 10:46 100 MLS/HR Cyanocobalamin 1,000 mcg DAILY PO 08/31/24 10:45 08/31/24 11:59 1,000 MCG Enteral Nutritional Formula 240 ml BIDWM PO 08/31/24 18:00 Prochlorperazine Maleate 5 mg TIDP PRN PO 08/31/24 15:30 Enteral Nutritional Formula 240 ml BIDWM PO 08/31/24 18:00 Examination Physical Examination Gen - no pallor, no icterus, no cyanosis, no clubbing, no LAD, no edema . Patient is cachectic with temporal wasting, scaphoid abdomen, muscle wasting in the hand and the feet. Skin - Patients skin is warm and dry. HEENT - normocephalic, atraumatic, dry mucous membranes with bruising on the lower lip. Neck - full ROM, no LAD, no JVD Pulmonary - B/L vesicular breath sounds. no crackles , no wheezing, no stridor. cardiovascular - normal S1,S2 heard. no murmurs heard. peripheral pulses normal radial 2+, pedal 2+. capillary refill normal <2 secs. GI - scaphoid, soft abdomen without tenderness to palpation . no hepatospleenomegaly. Bowel sounds + Neurological - Patient is A/O X 3 . Bilateral upper extremity strength 5/5, bilateral lower extremity strength 5/5, no facial droop, normal speech, no tremor, no sensory deficiets. laboratory and microbiology Laboratory Tests 08/31/24 06:26 Test 08/31/24 06:26 Range/Units Serum Glucose 111 H 74-106 mg/dL Problem List/Assessment/Plan Problem List/Assessment/Plan Assessment and plan # Intractable nausea # 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 and prochlorperazine p.r.n. for nausea - Protonix 40 mg b.i.d. p.o. - sucralfate 1 g q.i.d. -full liquid diet and ensure protein -IV fluids # acute diarrhea likely due to ?chemotherapy ? Acute infectious - no blood in stool, H&H stable - C diff, stool for culture, stool occult blood pending - patient on ceftriaxone IV 1 g daily - IV fluids # UTI likely acute cystitis - UA shows positive leukocyte esterase and elevated WBC - urine culture pending - on ceftriaxone 1 g IV daily # history of BPH - on tamsulosin once daily Goals of care discussed with the patient for over 20 minutes. Full code. Plan discussed with Dr. Lentz Plan discussed with: Patient My Orders My Orders Orders - SHAWN HOLMAN RESIDENT Procedure Category Date Status Time Cyanocobalamin PHA 08/31/24 In Process (Vitamin B-12) 10:45 Lactated Ringer's PHA 08/31/24 In Process 11:00 Nutritional PHA 08/31/24 In Process Supplements (Ensure 18:00 Full Liq Diet DIET 08/31/24 Transmitted Dinner Prochlorperazine PHA 08/31/24 In Process Tablet (Compazine 15:30 Nutritional PHA 08/31/24 In Process Supplements (Ensure 18:00 Date of Service: Aug 31, 2024 Billing Provider: BUBBA BRISCOE MD Common Visit Codes: [id number] INP/OBS CARE(HIGH) SHAWN HOLMAN RESIDENT Aug 31, 2024 16:54 BUBBA BRISCOE MD Aug 31, 2024 22:40
[2024-08-31 17:00] VITALS: BP 111/55; PULSE 81; RESP 19; TEMP 98.9; O2SAT 99
[2024-08-31] MEDS: Ensure HIGH Protein Chocolate 8oz Bottle PO SCH (18:00)
[2024-08-31] MEDS: Ensure Enlive Strawberry 8oz Bottle PO SCH (18:00)
[2024-08-31 21:00] VITALS: BP 106/71; PULSE 93; RESP 16; TEMP 98.4; O2SAT 99
--- NOTE | 2024-08-31 22:30 | DVH ---
INDICATION: BPH , UTI TECHNIQUE: Multiple real-time sonographic images of the kidneys and bladder and gallbladder were obta ined. COMPARISON: None FINDINGS: RIGHT kidney measures 8 cm in length. None hydronephrosis. LEFT kidney measures 9.9 cm in length. 9 hydronephrosis. No large intraluminal masses are seen in the bladder. Prostate measures 5.6 x 5.2 x 4.7 cm. Multiple gallstones are seen. No abnormal gallbladder wall thickening. Questionable common bile duct is seen which is abnormally dilated measuring up to 1.7 cm. IMPRESSION: 1. Questionable common bile duct is seen which is abnormally dilated measuring up to 1.7 cm. If bilir ubin levels are elevated, recommend MRCP or ERCP for further evaluation. 2. Cholelithiasis without evidence of cholecystitis. 3. No hydronephrosis or nephrolithiasis.
[2024-09-01 00:52] VITALS: BP 106/52; PULSE 87; RESP 18; TEMP 97.5; O2SAT 97
[2024-09-01 04:41] VITALS: BP 114/65; PULSE 90; RESP 16; TEMP 97.9; O2SAT 99
[2024-09-01 06:28] LABS: Hematocrit 34.1 % (41.0-53.0); Hemoglobin 11.3 g/dL (13.5-17.5); Mean Corpuscular Hemoglobin 29.1 pg (28.0-32.0); Mean Corpuscular Hgb Conc. 33.1 g/dL (32.0-36.0); Platelet Count (auto) 244 10^3/uL (140-450); Red Blood Cells 3.88 10^6/uL (4.5-5.90); Red Cell Distribution Width 13.8 % (11.8-14.3)
[2024-09-01 06:46] LABS: Basophils % (manual) 0 (0.0-2.0); Blast Cells 0; Metamyelocytes % 0; Myelocytes % 0; Promyelocytes % 0; Reactive Lymphocytes 0
[2024-09-01 06:54] LABS: Alanine Aminotransferase 27 U/L (7-40); Albumin 3.1 g/dL (3.2-4.8); Alkaline Phosphatase 94 U/L (46-116); Anion Gap 14 (5-15); Aspartate Aminotransferase 22 U/L (13-40); BUN/Creatinine Ratio 18.2 (10.0-20.0); Bilirubin, Total 0.4 mg/dL (0.2-1.0); Blood Urea Nitrogen 12 mg/dL (9-23); Calcium 8.8 mg/dL (8.7-10.4); Carbon Dioxide 19 mmol/L (20-31); Chloride 109 mmol/L (98-107); Glucose 92 mg/dL (74-106); Potassium 3.1 mmol/L (3.5-5.1); Sodium 142 mmol/L (136-145)
[2024-09-01 07:51] LABS: Band Neutrophils % (manual) 1; Eosinophils % (manual) 1 (0-7); Lymphocytes % (manual) 15 (10.0-50.0); Monocytes % (manual) 12 (0-12); Platelet Estimate Adequate; RBC Morphology Normal
[2024-09-01] MEDS: LACTATED RINGER'S 1,000 ML IV SCH (08:15)
[2024-09-01 09:00] VITALS: BP 111/64; PULSE 119; RESP 16; TEMP 97.6; O2SAT 96
--- NOTE | 2024-09-01 10:00 | DVHPNRES ---
Progress Note Date Seen: Sep 01, 2024 Resident Creating Document: JHZacheryJSHAWN Mejía RESIDENT Medical Necessity Reason Pt with a Central, PICC or Fol: No Objective vital signs Vital Sign Date Time Temp Pulse Resp B/P (MAP) Pulse Ox O2 Delivery O2 Flow Rate FiO2 09/01/24 04:41 97.9 90 16 114/65 (81) 99 97.9 08/31/24 20:00 Room Air* 0 21 Total Intake and Output 08/31/24 08/31/24 09/01/24 15:00 23:00 07:00 Intake Total 50 ml 950 ml 200 ml Balance 50 ml 950 ml 200 ml medications Current Medications Medications Dose Ordered Sig/Jeronimo Route Start Time Stop Time Status Last Admin Dose Admin Acetaminophen/ Codeine Phosphate 1 tab TIDP PO 08/30/24 14:00 Hold Pantoprazole Sodium 40 mg BID PO 08/30/24 22:00 08/31/24 22:53 40 MG Sucralfate 1 gm QIDACHS PO 08/30/24 17:00 09/01/24 06:36 1 GM Tamsulosin HCl 0.4 mg QPM PO 08/30/24 18:00 08/31/24 17:32 0.4 MG Patient Own Medication 1 tab BID PO 08/30/24 22:00 Patient Own Medication 1 tab DAILY PO 08/31/24 10:00 Ferrous Sulfate 325 mg BIDBRS PO 08/30/24 18:00 08/31/24 17:32 325 MG Patient Own Medication 500 mg DAILY PO 08/31/24 10:00 Patient Own Medication 50 mg DAILY TD 08/31/24 10:00 Hold Patient Own Medication 0.5 mg DAILY INJ 08/31/24 10:00 Hold Lorazepam 0.5 mg Q6HP PRN PO 08/30/24 12:15 Al Hydrox/Mg Hydrox/Simethicone 30 ml Q6HP PRN PO 08/30/24 12:15 Docusate Sodium 100 mg BIDPRN PRN PO 08/30/24 12:15 Acetaminophen 650 mg Q6HP PRN PO 08/30/24 12:15 Acetaminophen/ Hydrocodone Bitart 1 tab Q4HP PRN PO 08/30/24 12:15 08/31/24 10:46 1 TAB Ondansetron HCl 4 mg Q4HP PRN IV 08/30/24 12:15 08/31/24 12:18 4 MG Morphine Sulfate 2 mg Q4HPRN PRN IV 08/30/24 12:15 Ceftriaxone Sodium 50 ml @ 100 mls/hr DAILY@09 IV 08/30/24 19:15 09/01/24 09:43 100 MLS/HR Cyanocobalamin 1,000 mcg DAILY PO 08/31/24 10:45 08/31/24 11:59 1,000 MCG Enteral Nutritional Formula 240 ml BIDWM PO 08/31/24 18:00 08/31/24 18:00 240 ML Prochlorperazine Maleate 5 mg TIDP PRN PO 08/31/24 15:30 Enteral Nutritional Formula 240 ml BIDWM PO 08/31/24 18:00 08/31/24 18:00 240 ML Lactated Ringer's 1,000 ml @ 75 mls/hr [id number] IV 09/01/24 08:15 09/01/24 08:15 75 MLS/HR laboratory and microbiology Laboratory Tests 09/01/24 06:00 Test 09/01/24 06:00 Range/Units Serum Glucose 92 74-106 mg/dL Problem List/Assessment/Plan Problem List/Assessment/Plan Assessment and plan # Intractable nausea # 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 and prochlorperazine p.r.n. for nausea - Protonix 40 mg b.i.d. p.o. - sucralfate 1 g q.i.d. -full liquid diet and ensure protein -IV fluids # acute diarrhea likely due to ?chemotherapy ? Acute infectious - no blood in stool, H&H stable - C diff, stool for culture, stool occult blood pending - patient on ceftriaxone IV 1 g daily - IV fluids # UTI likely acute cystitis - UA shows positive leukocyte esterase and elevated WBC - urine culture pending - on ceftriaxone 1 g IV daily # history of BPH - on tamsulosin once daily Goals of care discussed with the patient for over 20 minutes. Full code. Plan discussed with Dr. Lentz My Orders My Orders Orders - SHAWN HOLMAN RESIDENT Procedure Category Date Status Time Cyanocobalamin PHA 08/31/24 In Process (Vitamin B-12) 10:45 Nutritional PHA 08/31/24 In Process Supplements (Ensure 18:00 Full Liq Diet DIET 08/31/24 Transmitted Dinner Prochlorperazine PHA 08/31/24 In Process Tablet (Compazine 15:30 Nutritional PHA 08/31/24 In Process Supplements (Ensure 18:00 Clostridium Difficile DAMARIS 08/31/24 Uncollected Toxin 17:38 Stool Occult Blood LAB 08/31/24 Logged 20:48 Stool Bacterial DAMARIS 08/31/24 Uncollected Culture 20:48 Ova & Parasite Exam DAMARIS 08/31/24 Uncollected 20:48 Npo After Midnight DIET 09/01/24 Transmitted Breakfast Communication Order ORDERS 08/31/24 Transmitted 21:02 Kidney US 08/31/24 Resulted 21:05 Urine Bacterial DAMARIS 09/01/24 In Process Culture 04:20 Lactated Ringer's PHA 09/01/24 In Process 08:15 SHAWN HOLMAN RESIDENT Sep 01, 2024 10:00
[2024-09-01 13:00] VITALS: BP 113/62; PULSE 86; RESP 17; TEMP 98.1; O2SAT 97
[2024-09-01 17:00] VITALS: BP 107/58; PULSE 91; RESP 18; TEMP 98.7; O2SAT 98
[2024-09-01] MEDS: POTASSIUM EFFERVESENT TAB 25 MEQ PO ONE (17:06)
[2024-09-01 21:00] VITALS: BP 128/73; PULSE 89; RESP 18; TEMP 97.6; O2SAT 97
--- NOTE | 2024-09-01 21:39 | DVHPNRES ---
Progress Note Date Seen: Sep 01, 2024 Resident Creating Document: JHZacheryJLUZMARIA MejíaPACHECOAUDREY RESIDENT Medical Necessity Reason Pt with a Central, PICC or Fol: No Subjective Review of Systems Patient is a 89-year-old male with a past medical history of 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 Patient reported that tell about 3 weeks ago he was having dark-colored stools since then he started having yellow stools in consistency gradually started getting worse with patient having diarrhea for about past 10 days. Patient reported that his last chemotherapy was done 2 days ago. Patient did not report fever, chills. Patient reports decreased appetite and feeling nauseous and reflux. CBC showed mild anemia, BMP showed mild hypokalemia. Past medical history: Patient was admitted to the hospital in July 01, 2023 with a melena and blood in vomitus following which EGD was done patient was diagnosed with gastric adenocarcinoma on chemotherapy. Another upper endoscopy was done in March 31, 2024 which showed persistent progressive large pre-pyloric antral ulcerated mass with a raised edges which was causing partial gastric outlet obstruction. Past surgical history: Endoscopy x2 Social history: Patient denies smoking, alcohol, drug use Review of systems 08/31- Patient seen and examined at the bedside. Patient is alert and oriented to time, place and person. Patient reports feeling nauseous and decreased appetite. Patient reports multiple bouts of diarrhea, no blood in stool, watery, yellowish in color. Patient reports no fever, chills. Patient reports feeling weak but is able to walk without support to the restroom and back. Patient's blood pressure at the time of examination 109/63 mmHg, pulse 75 per minute regular, saturating 95% at room air. 09/01- patient is alert and oriented to, place and person. Patient reports does not report feeling nauseous and reports that he drank the ensure protein without feeling abdominal pain, nausea, vomiting. Patient reports that his diarrhea is also coming down with a few episodes but it is still watery. Patient denies abdominal pain, fever, chills. Objective vital signs Vital Sign Date Time Temp Pulse Resp B/P (MAP) Pulse Ox O2 Delivery O2 Flow Rate FiO2 09/01/24 21:00 97.6 89 18 128/73 (91) 97 97.6 09/01/24 08:00 Room Air* 0 21 Total Intake and Output 08/31/24 08/31/24 09/01/24 15:00 23:00 07:00 Intake Total 50 ml 950 ml 200 ml Balance 50 ml 950 ml 200 ml medications Current Medications Medications Dose Ordered Sig/Jeronimo Route Start Time Stop Time Status Last Admin Dose Admin Acetaminophen/ Codeine Phosphate 1 tab TIDP PO 08/30/24 14:00 Hold Pantoprazole Sodium 40 mg BID PO 08/30/24 22:00 08/31/24 22:53 40 MG Sucralfate 1 gm QIDACHS PO 08/30/24 17:00 09/01/24 17:06 1 GM Tamsulosin HCl 0.4 mg QPM PO 08/30/24 18:00 09/01/24 18:00 0.4 MG Patient Own Medication 1 tab BID PO 08/30/24 22:00 Patient Own Medication 1 tab DAILY PO 08/31/24 10:00 Ferrous Sulfate 325 mg BIDBRS PO 08/30/24 18:00 09/01/24 17:07 325 MG Patient Own Medication 500 mg DAILY PO 08/31/24 10:00 Patient Own Medication 50 mg DAILY TD 08/31/24 10:00 Hold Patient Own Medication 0.5 mg DAILY INJ 08/31/24 10:00 Hold Lorazepam 0.5 mg Q6HP PRN PO 08/30/24 12:15 Al Hydrox/Mg Hydrox/Simethicone 30 ml Q6HP PRN PO 08/30/24 12:15 Docusate Sodium 100 mg BIDPRN PRN PO 08/30/24 12:15 Acetaminophen 650 mg Q6HP PRN PO 08/30/24 12:15 Acetaminophen/ Hydrocodone Bitart 1 tab Q4HP PRN PO 08/30/24 12:15 08/31/24 10:46 1 TAB Ondansetron HCl 4 mg Q4HP PRN IV 08/30/24 12:15 09/01/24 20:43 4 MG Morphine Sulfate 2 mg Q4HPRN PRN IV 08/30/24 12:15 Ceftriaxone Sodium 50 ml @ 100 mls/hr DAILY@09 IV 08/30/24 19:15 09/01/24 09:43 100 MLS/HR Cyanocobalamin 1,000 mcg DAILY PO 08/31/24 10:45 08/31/24 11:59 1,000 MCG Enteral Nutritional Formula 240 ml BIDWM PO 08/31/24 18:00 09/01/24 18:00 240 ML Prochlorperazine Maleate 5 mg TIDP PRN PO 08/31/24 15:30 Enteral Nutritional Formula 240 ml BIDWM PO 08/31/24 18:00 09/01/24 17:07 240 ML Lactated Ringer's 1,000 ml @ 75 mls/hr [id number] IV 09/01/24 08:15 09/01/24 08:15 75 MLS/HR Examination Physical Examination Gen - no pallor, no icterus, no cyanosis, no clubbing, no LAD, no edema . Patient is cachectic with temporal wasting, scaphoid abdomen, muscle wasting in the hand and the feet. Skin - Patients skin is warm and dry. HEENT - normocephalic, atraumatic, dry mucous membranes with bruising on the lower lip. Neck - full ROM, no LAD, no JVD Pulmonary - B/L vesicular breath sounds. no crackles , no wheezing, no stridor. cardiovascular - normal S1,S2 heard. no murmurs heard. peripheral pulses normal radial 2+, pedal 2+. capillary refill normal <2 secs. GI - scaphoid, soft abdomen without tenderness to palpation . no hepatospleenomegaly. Bowel sounds + Neurological - Patient is A/O X 3 . Bilateral upper extremity strength 5/5, bilateral lower extremity strength 5/5, no facial droop, normal speech, no tremor, no sensory deficiets. 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 and prochlorperazine p.r.n. for nausea - Protonix 40 mg b.i.d. p.o. - sucralfate 1 g q.i.d. -full liquid diet and ensure protein -IV fluids # acute diarrhea likely due to ?chemotherapy induced ? Acute infectious - no blood in stool, H&H stable - C diff pending - stool WBCs negative - shiga toxin negative - no Campylobacter antigen detected - patient on ceftriaxone IV 1 g daily - IV fluids # UTI likely acute cystitis - UA shows positive leukocyte esterase and elevated WBC - urine culture pending - on ceftriaxone 1 g IV daily # history of BPH - on tamsulosin once daily # common bile duct dilation - on ultrasound Questionable common bile duct is seen which is abnormally dilated measuring up to 1.7 cm - bilirubin level within normal limit - cholelithiasis without evidence of cholecystitis Goals of care discussed with the patient for over 20 minutes. Full code. Plan discussed with Dr. Lentz Plan discussed with: Patient My Orders My Orders Orders - SHAWN HOLMAN Procedure Category Date Status Time Lactated Ringer's PHA 09/01/24 In Process 08:15 Full Liq Diet DIET 09/01/24 Transmitted Lunch Date of Service: Sep 01, 2024 Billing Provider: BUBBA BRISCOE MD Common Visit Codes: [id number] INP/OBS CARE(HIGH) SHAWN HOLMAN RESIDENT Sep 01, 2024 21:39 BUBBA BRISCOE MD Sep 02, 2024 09:13
[2024-09-02 01:00] VITALS: BP 107/62; PULSE 86; RESP 18; TEMP 97.7; O2SAT 98
[2024-09-02 05:00] VITALS: BP 94/57; PULSE 96; RESP 18; TEMP 98; O2SAT 96
[2024-09-02 05:43] LABS: Hematocrit 35.7 % (41.0-53.0); Hemoglobin 12.2 g/dL (13.5-17.5); Mean Corpuscular Hgb Conc. 34.3 g/dL (32.0-36.0); Mean Corpuscular Volume 87.7 fL (80.0-100.0); Platelet Count (auto) 317 10^3/uL (140-450); Red Blood Cells 4.07 10^6/uL (4.5-5.90); Red Cell Distribution Width 13.8 % (11.8-14.3); White Blood Cell 6.2 10^3/uL (4.4-10.8)
[2024-09-02 05:49] LABS: Basophils % (manual) 0 (0.0-2.0); Blast Cells 0; Eosinophils % (manual) 0 (0-7); Metamyelocytes % 0; Myelocytes % 0; Promyelocytes % 0; Reactive Lymphocytes 0
[2024-09-02 05:57] LABS: Anion Gap 16 (5-15); Calcium 9.3 mg/dL (8.7-10.4); Carbon Dioxide 18 mmol/L (20-31); Chloride 108 mmol/L (98-107); Potassium 3.3 mmol/L (3.5-5.1); Sodium 142 mmol/L (136-145)
[2024-09-02 06:03] LABS: BUN/Creatinine Ratio 17.4 (10.0-20.0); Blood Urea Nitrogen 12 mg/dL (9-23); Glucose 88 mg/dL (74-106)
[2024-09-02 08:29] LABS: Band Neutrophils % (manual) 2; Lymphocytes % (manual) 11 (10.0-50.0); Monocytes % (manual) 17 (0-12); Platelet Estimate Adequate
[2024-09-02 08:30] VITALS: BP 105/63; PULSE 89; RESP 14; TEMP 97.6; O2SAT 98
[2024-09-02 08:30] LABS: Giant Platelets Few; RBC Morphology Normal
[2024-09-02] MEDS: Ensure HIGH Protein Chocolate 8oz Bottle PO SCH (12:10)
[2024-09-02 13:00] VITALS: BP 129/61; PULSE 88; RESP 14; TEMP 97.9; O2SAT 98
[2024-09-02 16:30] VITALS: BP 108/59; PULSE 89; RESP 12; TEMP 98.1; O2SAT 98
[2024-09-02] MEDS ORDERED: SODIUM CHLORIDE 0.9% 500 ML IV ONE (16:45)
[2024-09-02] MEDS ORDERED: PPN PER PHARMACY 0 ML IV SCH (16:45)
[2024-09-02] MEDS ORDERED: DEXTROSE (50%) 50ML SYRG IV SCH (17:00)
[2024-09-02] MEDS: LACTATED RINGER'S 1,000 ML IV SCH (17:00)
--- NOTE | 2024-09-02 17:42 | DVHPNRES ---
Progress Note Date Seen: Sep 02, 2024 Resident Creating Document: JHZacheryJSHAWN Mejía RESIDENT Medical Necessity Reason Pt with a Central, PICC or Fol: No Subjective Review of Systems Patient is a 89-year-old male with a past medical history of 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 Patient reported that tell about 3 weeks ago he was having dark-colored stools since then he started having yellow stools in consistency gradually started getting worse with patient having diarrhea for about past 10 days. Patient reported that his last chemotherapy was done 2 days ago. Patient did not report fever, chills. Patient reports decreased appetite and feeling nauseous and reflux. CBC showed mild anemia, BMP showed mild hypokalemia. Past medical history: Patient was admitted to the hospital in July 01, 2023 with a melena and blood in vomitus following which EGD was done patient was diagnosed with gastric adenocarcinoma on chemotherapy. Another upper endoscopy was done in March 31, 2024 which showed persistent progressive large pre-pyloric antral ulcerated mass with a raised edges which was causing partial gastric outlet obstruction. Past surgical history: Endoscopy x2 Social history: Patient denies smoking, alcohol, drug use Review of systems 08/31- Patient seen and examined at the bedside. Patient is alert and oriented to time, place and person. Patient reports feeling nauseous and decreased appetite. Patient reports multiple bouts of diarrhea, no blood in stool, watery, yellowish in color. Patient reports no fever, chills. Patient reports feeling weak but is able to walk without support to the restroom and back. Patient's blood pressure at the time of examination 109/63 mmHg, pulse 75 per minute regular, saturating 95% at room air. 09/01- patient is alert and oriented to, place and person. Patient reports does not report feeling nauseous and reports that he drank the ensure protein without feeling abdominal pain, nausea, vomiting. Patient reports that his diarrhea is also coming down with a few episodes but it is still watery. Patient denies abdominal pain, fever, chills. 09/02- patient is alert and oriented to time, place and person. Patient reported that overnight he had 1 episode of vomiting after drinking water probably too quickly. No episode of vomiting since the morning and patient has tolerated liquids like water, jello, ensure protein in small amounts without nausea or vomiting. Patient reported multiple bouts of diarrhea over night throughout the day. Denies abdominal pain, fever, chills. Patient was requested to get a contact number from is a girlfriend who he reported will come to visit him at around 5-6 p.m. in the evening so that his condition could be explained better to his kin. Objective vital signs Vital Sign Date Time Temp Pulse Resp B/P (MAP) Pulse Ox O2 Delivery O2 Flow Rate FiO2 09/02/24 16:30 98.1 89 12 108/59 (75) 98 98.1 09/02/24 07:59 Room Air* 0 21 Total Intake and Output 09/01/24 09/01/24 09/02/24 15:00 23:00 07:00 Intake Total 118 ml 600 ml Balance 118 ml 600 ml medications Current Medications Medications Dose Ordered Sig/Jeronimo Route Start Time Stop Time Status Last Admin Dose Admin Acetaminophen/ Codeine Phosphate 1 tab TIDP PO 08/30/24 14:00 Hold Pantoprazole Sodium 40 mg BID PO 08/30/24 22:00 09/02/24 10:18 40 MG Sucralfate 1 gm QIDACHS PO 08/30/24 17:00 09/02/24 12:10 1 GM Tamsulosin HCl 0.4 mg QPM PO 08/30/24 18:00 09/01/24 18:00 0.4 MG Patient Own Medication 1 tab BID PO 08/30/24 22:00 09/02/24 10:00 1 TAB Patient Own Medication 1 tab DAILY PO 08/31/24 10:00 09/02/24 10:00 1 TAB Ferrous Sulfate 325 mg BIDBRS PO 08/30/24 18:00 09/02/24 08:00 325 MG Patient Own Medication 50 mg DAILY TD 08/31/24 10:00 Hold Patient Own Medication 0.5 mg DAILY INJ 08/31/24 10:00 Hold Lorazepam 0.5 mg Q6HP PRN PO 08/30/24 12:15 Al Hydrox/Mg Hydrox/Simethicone 30 ml Q6HP PRN PO 08/30/24 12:15 Docusate Sodium 100 mg BIDPRN PRN PO 08/30/24 12:15 Acetaminophen 650 mg Q6HP PRN PO 08/30/24 12:15 Acetaminophen/ Hydrocodone Bitart 1 tab Q4HP PRN PO 08/30/24 12:15 08/31/24 10:46 1 TAB Ondansetron HCl 4 mg Q4HP PRN IV 08/30/24 12:15 09/02/24 10:18 4 MG Morphine Sulfate 2 mg Q4HPRN PRN IV 08/30/24 12:15 Ceftriaxone Sodium 50 ml @ 100 mls/hr DAILY@09 IV 08/30/24 19:15 09/02/24 09:00 100 MLS/HR Cyanocobalamin 1,000 mcg DAILY PO 08/31/24 10:45 09/02/24 10:19 1,000 MCG Prochlorperazine Maleate 5 mg TIDP PRN PO 08/31/24 15:30 Enteral Nutritional Formula 240 ml BIDWM PO 08/31/24 18:00 09/02/24 08:00 240 ML Enteral Nutritional Formula 240 ml TIDWM PO 09/02/24 12:00 09/02/24 12:10 240 ML Patient Own Medication 550 mg DAILY PO 09/03/24 10:00 Lactated Ringer's 1,000 ml @ 50 mls/hr Q20H IV 09/02/24 17:00 Diagnostic Test (Pha) 1 strip Q6HR 09/02/24 18:00 Cancel Insulin Human Regular FOLLOW SLIDING SCALE Q6HR SC 09/02/24 18:00 Cancel Dextrose 50 ml UD IV 09/02/24 17:00 Cancel Examination Physical Examination Gen - no pallor, no icterus, no cyanosis, no clubbing, no LAD, no edema . Patient is cachectic with temporal wasting, scaphoid abdomen, muscle wasting in the hand and the feet. Skin - Patients skin is warm and dry. HEENT - normocephalic, atraumatic, dry mucous membranes with bruising on the lower lip. Neck - full ROM, no LAD, no JVD Pulmonary - B/L vesicular breath sounds. no crackles , no wheezing, no stridor. cardiovascular - normal S1,S2 heard. no murmurs heard. peripheral pulses normal radial 2+, pedal 2+. capillary refill normal <2 secs. GI - scaphoid, soft abdomen without tenderness to palpation . no hepatospleenomegaly. Bowel sounds + Neurological - Patient is A/O X 3 . Bilateral upper extremity strength 4/5, bilateral lower extremity strength 4/5, no facial droop, normal speech, no tremor, no sensory deficiets. 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 and prochlorperazine p.r.n. for nausea - Protonix 40 mg b.i.d. p.o. - sucralfate 1 g q.i.d. -full liquid diet and ensure protein -IV fluids # acute diarrhea likely due to ?chemotherapy induced ? Acute infectious - no blood in stool, H&H stable - C diff pending - stool WBCs negative - shiga toxin negative - no Campylobacter antigen detected - patient on ceftriaxone IV 1 g daily - IV fluids # 09/02- metabolic acidosis with anion gap - likely due to starvation, ketosis - patient was encouraged to drink oral fluids and supplements - monitor # UTI likely acute cystitis - UA shows positive leukocyte esterase and elevated WBC - urine culture pending - on ceftriaxone 1 g IV daily # history of BPH - on tamsulosin once daily # common bile duct dilation - on ultrasound Questionable common bile duct is seen which is abnormally dilated measuring up to 1.7 cm - bilirubin level within normal limit - cholelithiasis without evidence of cholecystitis Goals of care discussed with the patient for over 20 minutes. Full code. Plan discussed with Dr. Lentz Plan discussed with: Patient My Orders My Orders Orders - SHAWN HOLMAN RESIDENT Procedure Category Date Status Time Pt Request For Service PT 09/02/24 Logged 04:00 Date of Service: Sep 02, 2024 Billing Provider: BUBBA BRISCOE MD Common Visit Codes: [id number] INP/OBS CARE(HIGH) SHAWN HOLMAN RESIDENT Sep 02, 2024 17:42 BUBBA BRISCOE MD Sep 04, 2024 09:20
[2024-09-02] MEDS ORDERED: ACCU-CHEK COMFORT CURVE STRIP VI SCH (18:00)
[2024-09-02] MEDS ORDERED: InsuLIN REG 1unit/0.01ml Soln (100units/ml) SC SCH (18:00)
[2024-09-02 21:00] VITALS: BP 104/69; PULSE 97; RESP 16; TEMP 97.2; O2SAT 90
[2024-09-03] VITALS (7 sets, daily range): BP systolic 99–123; BP diastolic 55–73; PULSE 78–99; RESP 16–20; TEMP 97.4–98.3; O2SAT 97–99
[2024-09-03 07:12] LABS: Chloride 109 mmol/L (98-107); Potassium 3.6 mmol/L (3.5-5.1); Sodium 142 mmol/L (136-145)
[2024-09-03 07:13] LABS: Anion Gap 16 (5-15); Calcium 9.4 mg/dL (8.7-10.4); Carbon Dioxide 17 mmol/L (20-31)
[2024-09-03 07:18] LABS: BUN/Creatinine Ratio 16.4 (10.0-20.0); Blood Urea Nitrogen 12 mg/dL (9-23); Glucose 97 mg/dL (74-106)
[2024-09-03 07:36] LABS: Basophils # (auto) 0 10 ^3/uL (0-0.2); Basophils % (auto) 0.2 % (0.0-2.0); Eosinophils # (auto) 0 10 ^3/uL (0-0.8); Eosinophils % (auto) 0.5 % (0.0-7.0); Hematocrit 34.3 % (41.0-53.0); Hemoglobin 11.7 g/dL (13.5-17.5); Lymphocytes # (auto) 0.6 10 ^3/uL (0.4-5.4); Lymphocytes % (auto) 10.6 % (10.0-50.0); Mean Corpuscular Hemoglobin 29.9 pg (28.0-32.0); Mean Corpuscular Hgb Conc. 34.1 g/dL (32.0-36.0); Mean Corpuscular Volume 87.7 fL (80.0-100.0); Monocytes # (auto) 1.6 10 ^3/uL (0-1.3); Monocytes % (auto) 27.9 % (0.0-12.0); Neutrophils # (auto) 3.5 10 ^3/uL (1.6-8.6); Neutrophils % (auto) 60.8 % (37.0-80.0); Nucleated Red Blood Cells % 0.2 %; Platelet Count (auto) 319 10^3/uL (140-450); Red Blood Cells 3.92 10^6/uL (4.5-5.90); Red Cell Distribution Width 13.7 % (11.8-14.3); White Blood Cell 5.8 10^3/uL (4.4-10.8)
[2024-09-03] MEDS: GLUCOSAMINE HYDROCHLORIDE PO SCH (09:39)
[2024-09-03] MEDS: LACTATED RINGER'S 500 ML IV ONE (12:30)
[2024-09-03] MEDS: LOPERAMIDE HCL 2 MG CAP/TAB PO ONE (16:13)
--- NOTE | 2024-09-03 21:50 | DVHPNRES ---
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 Patient reported that tell about 3 weeks ago he was having dark-colored stools since then he started having yellow stools in consistency gradually started getting worse with patient having diarrhea for about past 10 days. Patient reported that his last chemotherapy was done 2 days ago. Patient did not report fever, chills. Patient reports decreased appetite and feeling nauseous and reflux. CBC showed mild anemia, BMP showed mild hypokalemia. Past medical history: Patient was admitted to the hospital in July 01, 2023 with a melena and blood in vomitus following which EGD was done patient was diagnosed with gastric adenocarcinoma on chemotherapy. Another upper endoscopy was done in March 31, 2024 which showed persistent progressive large pre-pyloric antral ulcerated mass with a raised edges which was causing partial gastric outlet obstruction. Past surgical history: Endoscopy x2 Social history: Patient denies smoking, alcohol, drug use Review of systems 08/31- Patient seen and examined at the bedside. Patient is alert and oriented to time, place and person. Patient reports feeling nauseous and decreased appetite. Patient reports multiple bouts of diarrhea, no blood in stool, watery, yellowish in color. Patient reports no fever, chills. Patient reports feeling weak but is able to walk without support to the restroom and back. Patient's blood pressure at the time of examination 109/63 mmHg, pulse 75 per minute regular, saturating 95% at room air. 09/01- patient is alert and oriented to, place and person. Patient reports does not report feeling nauseous and reports that he drank the ensure protein without feeling abdominal pain, nausea, vomiting. Patient reports that his diarrhea is also coming down with a few episodes but it is still watery. Patient denies abdominal pain, fever, chills. 09/02- patient is alert and oriented to time, place and person. Patient reported that overnight he had 1 episode of vomiting after drinking water probably too quickly. No episode of vomiting since the morning and patient has tolerated liquids like water, jello, ensure protein in small amounts without nausea or vomiting. Patient reported multiple bouts of diarrhea over night throughout the day. Denies abdominal pain, fever, chills. Patient was requested to get a contact number from is a girlfriend who he reported will come to visit him at around 5-6 p.m. in the evening so that his condition could be explained better to his kin. 09/03- patient was time, place and person. Patient reported that he had 1 episode of vomiting early in the morning and 2 episodes of watery diarrhea in the morning. C diff negative, stool culture negative, stool WBCs. Nurse reported that the patient in the morning had an episode of dizziness ? Loss of conscious while standing after he returned from the restroom after brushing his teeth. Patient did not hit his head and was caught by the scientific technical writer and placed on to the bed. Patient was hypotensive and was given a bolus of 500 mL of Ringer's lactate. Patient was encouraged to drink ensure protein . Objective vital signs Vital Sign Date Time Temp Pulse Resp B/P (MAP) Pulse Ox O2 Delivery O2 Flow Rate FiO2 09/03/24 21:00 97.8 94 20 99/55 (70) 99 97.8 09/03/24 20:00 Room Air* 0 21 Total Intake and Output 09/02/24 09/02/24 09/03/24 15:00 23:00 07:00 Intake Total 1830 ml 100 ml Balance 1830 ml 100 ml medications Current Medications Medications Dose Ordered Sig/Jeronimo Route Start Time Stop Time Status Last Admin Dose Admin Acetaminophen/ Codeine Phosphate 1 tab TIDP PO 08/30/24 14:00 Hold Pantoprazole Sodium 40 mg BID PO 08/30/24 22:00 09/03/24 21:38 40 MG Sucralfate 1 gm QIDACHS PO 08/30/24 17:00 09/03/24 21:38 1 GM Tamsulosin HCl 0.4 mg QPM PO 08/30/24 18:00 09/03/24 17:59 0.4 MG Patient Own Medication 1 tab BID PO 08/30/24 22:00 09/03/24 21:38 1 TAB Patient Own Medication 1 tab DAILY PO 08/31/24 10:00 09/03/24 09:38 1 TAB Ferrous Sulfate 325 mg BIDBRS PO 08/30/24 18:00 09/03/24 17:59 325 MG Patient Own Medication 50 mg DAILY TD 08/31/24 10:00 Hold Patient Own Medication 0.5 mg DAILY INJ 08/31/24 10:00 Hold Lorazepam 0.5 mg Q6HP PRN PO 08/30/24 12:15 Al Hydrox/Mg Hydrox/Simethicone 30 ml Q6HP PRN PO 08/30/24 12:15 Docusate Sodium 100 mg BIDPRN PRN PO 08/30/24 12:15 Acetaminophen 650 mg Q6HP PRN PO 08/30/24 12:15 Acetaminophen/ Hydrocodone Bitart 1 tab Q4HP PRN PO 08/30/24 12:15 08/31/24 10:46 1 TAB Ondansetron HCl 4 mg Q4HP PRN IV 08/30/24 12:15 09/03/24 17:59 4 MG Morphine Sulfate 2 mg Q4HPRN PRN IV 08/30/24 12:15 Ceftriaxone Sodium 50 ml @ 100 mls/hr DAILY@09 IV 08/30/24 19:15 09/03/24 09:39 100 MLS/HR Cyanocobalamin 1,000 mcg DAILY PO 08/31/24 10:45 09/03/24 09:38 1,000 MCG Prochlorperazine Maleate 5 mg TIDP PRN PO 08/31/24 15:30 Enteral Nutritional Formula 240 ml BIDWM PO 08/31/24 18:00 09/03/24 18:08 240 ML Enteral Nutritional Formula 240 ml TIDWM PO 09/02/24 12:00 09/03/24 18:08 240 ML Patient Own Medication 550 mg DAILY PO 09/03/24 10:00 09/03/24 09:39 550 MG Diagnostic Test (Pha) 1 strip Q6HR 09/02/24 18:00 Cancel Insulin Human Regular FOLLOW SLIDING SCALE Q6HR SC 09/02/24 18:00 Cancel Dextrose 50 ml UD IV 09/02/24 17:00 Cancel Examination Physical Examination Gen - no pallor, no icterus, no cyanosis, no clubbing, no LAD, no edema . Patient is cachectic with temporal wasting, scaphoid abdomen, muscle wasting in the hand and the feet. Skin - Patients skin is warm and dry. HEENT - normocephalic, atraumatic, dry mucous membranes with bruising on the lower lip. Neck - full ROM, no LAD, no JVD Pulmonary - B/L vesicular breath sounds. no crackles , no wheezing, no stridor. cardiovascular - normal S1,S2 heard. no murmurs heard. peripheral pulses normal radial 2+, pedal 2+. capillary refill normal <2 secs. GI - scaphoid, soft abdomen without tenderness to palpation . no hepatospleenomegaly. Bowel sounds + Neurological - Patient is A/O X 3 . Bilateral upper extremity strength 4/5, bilateral lower extremity strength 4/5, no facial droop, normal speech, no tremor, no sensory deficiets. laboratory and microbiology Laboratory Tests 09/03/24 05:30 Test 09/03/24 05:30 Range/Units Serum Glucose 97 74-106 mg/dL Microbiology Date/Time Source Procedure Growth Status 09/01/24 10:25 Stool Stool Culture - Preliminary Resulted 09/01/24 10:25 Stool Shiga Toxin I & II - Final Resulted 09/01/24 04:15 Voided Urine Urine Culture - Final Complete Problem List/Assessment/Plan Problem List/Assessment/Plan Assessment and plan # Intractable nausea # 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 and prochlorperazine p.r.n. for nausea - Protonix 40 mg b.i.d. p.o. - sucralfate 1 g q.i.d. -full liquid diet and ensure protein -IV fluids # acute diarrhea likely due to ?chemotherapy induced ? Acute infectious - no blood in stool, H&H stable - C diff negative - stool WBCs negative - shiga toxin negative - no Campylobacter antigen detected - patient on ceftriaxone IV 1 g daily - IV fluids - 1 dose of loperamide given on 09/03 # 09/02- metabolic acidosis with anion gap - likely due to starvation, ketosis - patient was encouraged to drink oral fluids and supplements - monitor # UTI likely acute cystitis - UA shows positive leukocyte esterase and elevated WBC - urine culture pending - on ceftriaxone 1 g IV daily # history of BPH - on tamsulosin once daily # common bile duct dilation - on ultrasound Questionable common bile duct is seen which is abnormally dilated measuring up to 1.7 cm - bilirubin level within normal limit - cholelithiasis without evidence of cholecystitis Goals of care discussed with the patient for over 20 minutes. Full code. Plan discussed with Dr. Lentz Plan discussed with: Patient Date of Service: Sep 03, 2024 Billing Provider: BUBBA BRISCOE MD Common Visit Codes: [id number] INP/OBS CARE(HIGH) SHAWN HOLMAN RESIDENT Sep 03, 2024 21:50 BUBBA BRISCOE MD Sep 04, 2024 09:12
[2024-09-04 05:00] VITALS: BP 111/66; PULSE 87; RESP 18; TEMP 97.7; O2SAT 96
[2024-09-04 05:38] LABS: Hematocrit 34.9 % (41.0-53.0); Hemoglobin 12.1 g/dL (13.5-17.5); Mean Corpuscular Hemoglobin 30.2 pg (28.0-32.0); Mean Corpuscular Hgb Conc. 34.6 g/dL (32.0-36.0); Mean Corpuscular Volume 87.3 fL (80.0-100.0); Platelet Count (auto) 349 10^3/uL (140-450); Red Blood Cells 3.99 10^6/uL (4.5-5.90); Red Cell Distribution Width 14.1 % (11.8-14.3); White Blood Cell 5.4 10^3/uL (4.4-10.8)
[2024-09-04 05:50] LABS: Anion Gap 15 (5-15); Carbon Dioxide 19 mmol/L (20-31); Chloride 108 mmol/L (98-107); Potassium 3.2 mmol/L (3.5-5.1); Sodium 142 mmol/L (136-145)
[2024-09-04 05:56] LABS: Blood Urea Nitrogen 13 mg/dL (9-23); Glucose 104 mg/dL (74-106)
[2024-09-04 06:06] LABS: Basophils % (manual) 0 (0.0-2.0); Blast Cells 0; Eosinophils % (manual) 0 (0-7); Metamyelocytes % 0; Myelocytes % 0; Promyelocytes % 0; Reactive Lymphocytes 0
[2024-09-04 07:49] LABS: Band Neutrophils % (manual) 20; Lymphocytes % (manual) 33 (10.0-50.0); Monocytes % (manual) 15 (0-12)
[2024-09-04 07:50] LABS: Platelet Estimate Adequate
[2024-09-04 09:00] VITALS: BP 147/60; PULSE 98; RESP 16; TEMP 97.2; O2SAT 98
[2024-09-04] MEDS: POTASSIUM CHL 20 Meq TABLET PO ONE (09:38)
[2024-09-04] MEDS: MAGNESIUM SULFATE 1GM/100ML 100 ML IV SCH (10:00)
[2024-09-04] MEDS: POTASSIUM CHLORIDE 40 MEQ, LIDOCAINE 1% (LOCAL ANESTH.) 4 ML in SODIUM CHL 0.9% 250 ML IV ONE (10:00)
[2024-09-04 13:00] VITALS: BP 111/57; PULSE 93; RESP 19; TEMP 98.4; O2SAT 100
[2024-09-04] MEDS ORDERED: LOPERAMIDE HCL 2 MG CAP/TAB PO PRN (13:30)
--- NOTE | 2024-09-04 14:56 | DVHPNRES ---
Progress Note Date Seen: Sep 04, 2024 Resident Creating Document: YAHAIRA EDSAI RESIDENT Medical Necessity Reason Pt with a Central, PICC or Fol: No Subjective Review of Systems Patient was seen and examined at bedside. He reported that he had 1 episode of vomiting early in the morning and 1 episode of watery diarrhea in the morning. Stool workup was negative. Patient was encouraged to drink ensure protein . Today with a lengthy conversation with the patient, his and son, it was decided that the patient will go hospice, we will explain extensively about this, we will also place a consult for social Service to begin discharge planning to hospice with home Started loperamide 2 mg p.o. p.r.n., Florastor daily, Metamucil Replace potassium and magnesium, monitor electrolytes. Objective vital signs Vital Sign Date Time Temp Pulse Resp B/P (MAP) Pulse Ox O2 Delivery O2 Flow Rate FiO2 09/04/24 13:00 98.4 93 19 111/57 (75) 100 98.4 09/03/24 20:00 Room Air* 0 21 Total Intake and Output 09/03/24 09/03/24 09/04/24 15:00 23:00 07:00 Intake Total 550 ml 100 ml 0 ml Output Total 300 ml 0 ml Balance 550 ml -200 ml 0 ml medications Current Medications Medications Dose Ordered Sig/Jeronimo Route Start Time Stop Time Status Last Admin Dose Admin Acetaminophen/ Codeine Phosphate 1 tab TIDP PO 08/30/24 14:00 Hold Pantoprazole Sodium 40 mg BID PO 08/30/24 22:00 09/04/24 07:58 40 MG Sucralfate 1 gm QIDACHS PO 08/30/24 17:00 09/04/24 12:11 1 GM Tamsulosin HCl 0.4 mg QPM PO 08/30/24 18:00 09/03/24 17:59 0.4 MG Patient Own Medication 1 tab BID PO 08/30/24 22:00 09/04/24 07:58 1 TAB Patient Own Medication 1 tab DAILY PO 08/31/24 10:00 09/04/24 07:58 1 TAB Ferrous Sulfate 325 mg BIDBRS PO 08/30/24 18:00 09/04/24 07:58 325 MG Patient Own Medication 50 mg DAILY TD 08/31/24 10:00 Hold Patient Own Medication 0.5 mg DAILY INJ 08/31/24 10:00 Hold Lorazepam 0.5 mg Q6HP PRN PO 08/30/24 12:15 Al Hydrox/Mg Hydrox/Simethicone 30 ml Q6HP PRN PO 08/30/24 12:15 Docusate Sodium 100 mg BIDPRN PRN PO 08/30/24 12:15 Acetaminophen 650 mg Q6HP PRN PO 08/30/24 12:15 Acetaminophen/ Hydrocodone Bitart 1 tab Q4HP PRN PO 08/30/24 12:15 08/31/24 10:46 1 TAB Ondansetron HCl 4 mg Q4HP PRN IV 08/30/24 12:15 09/03/24 17:59 4 MG Morphine Sulfate 2 mg Q4HPRN PRN IV 08/30/24 12:15 Ceftriaxone Sodium 50 ml @ 100 mls/hr DAILY@09 IV 08/30/24 19:15 09/04/24 08:03 100 MLS/HR Cyanocobalamin 1,000 mcg DAILY PO 08/31/24 10:45 09/04/24 07:58 1,000 MCG Prochlorperazine Maleate 5 mg TIDP PRN PO 08/31/24 15:30 Enteral Nutritional Formula 240 ml BIDWM PO 08/31/24 18:00 09/04/24 07:58 240 ML Enteral Nutritional Formula 240 ml TIDWM PO 09/02/24 12:00 09/04/24 12:18 240 ML Patient Own Medication 550 mg DAILY PO 09/03/24 10:00 09/04/24 07:59 550 MG Diagnostic Test (Pha) 1 strip Q6HR 09/02/24 18:00 Cancel Insulin Human Regular FOLLOW SLIDING SCALE Q6HR SC 09/02/24 18:00 Cancel Dextrose 50 ml UD IV 09/02/24 17:00 Cancel Loperamide HCl 2 mg PRN PRN PO 09/04/24 13:30 Saccharomyces Boulardii 250 mg DAILY PO 09/04/24 13:30 Examination General: Awake, alert, comfortable appearing, in no acute distress. HEENT: Head is normocephalic and atraumatic. Pupils are equal, round, and reactive to light. Extraocular muscles are intact. No nasal discharge. No facial trauma. Intraoral exam shows moist mucous membranes with no tonsillar enlargement or exudate. Neck: Supple with no cervical lymphadenopathy No meningismus. No goiter. Heart: Regular rate without murmur, rub, or gallop. Lungs: Equal breath sounds bilaterally with no wheezing, rales, or rhonchi. There is no chest wall tenderness or instability. Abdomen: No external sign of injury. Bowel sounds are present. Abdomen is soft, nontender. No rebound, no guarding, no rigidity. There are no palpable masses. There is no flank pain on exam. Extremities: Strong peripheral pulses. There is no clubbing, no cyanosis, and no edema. Skin: No rash. Neurologic: Cranial nerves II-XII intact without motor, sensory, or cerebellar deficit, no asterixis. laboratory and microbiology Laboratory Tests 09/04/24 04:56 Test 09/04/24 04:56 Range/Units Serum Glucose 104 74-106 mg/dL Microbiology Date/Time Source Procedure Growth Status 09/01/24 10:25 Stool Stool Culture - Final Complete 09/01/24 10:25 Stool Shiga Toxin I & II - Final Complete 09/01/24 04:15 Voided Urine Urine Culture - Final Complete Labs and/or images reviewed: Labs reviewed by me, Image(s) reviewed by me Problem List/Assessment/Plan Problem List/Assessment/Plan # Intractable nausea # H/O Gastric adenocarcinoma with pre-pyloric mass causing partial gastric outlet obstruction as per recent upper endoscopy 03/2024 - patient on Zofran p.r.n. and prochlorperazine p.r.n. for nausea - Protonix 40 mg b.i.d. p.o. - sucralfate 1 g q.i.d. -full liquid diet and ensure protein -IV fluids # acute diarrhea likely due to ?chemotherapy induced ? Acute infectious - no blood in stool, H&H stable - C diff negative - stool WBCs negative - shiga toxin negative - no Campylobacter antigen detected - patient on ceftriaxone IV 1 g daily - IV fluids - 1 dose of loperamide given on 09/03 Continue Lopressor ointment p.r.n. Continue Metamucil, continue Florastor #Hypokalemia #Hypomagnesemia Monitor and replete # 09/02- metabolic acidosis with anion gap - likely due to starvation, ketosis - patient was encouraged to drink oral fluids and supplements - monitor # UTI likely acute cystitis - UA shows positive leukocyte esterase and elevated WBC - urine culture pending - on ceftriaxone 1 g IV daily # history of BPH - on tamsulosin once daily # common bile duct dilation - on ultrasound Questionable common bile duct is seen which is abnormally dilated measuring up to 1.7 cm - bilirubin level within normal limit - cholelithiasis without evidence of cholecystitis Goals of care discussed with the patient for over 20 minutes. Full code. Plan discussed with Dr. Lentz Plan discussed with: Patient, Other (RN) My Orders My Orders Orders - YAHAIRA DESAI RESIDENT Procedure Category Date Status Time * Ophthalmic Nurse CONS 09/04/24 Transmitted Consult Loperamide Capsule PHA 09/04/24 In Process (Imodium Capsule) 13:30 Florastor (S. PHA 09/04/24 In Process Boulardii) (Florastor) 13:30 Date of Service: Sep 04, 2024 Billing Provider: BUBBA BRISCOE MD Common Visit Codes: [id number] INP/OBS CARE(HIGH) YAHAIRA DESAI RESIDENT Sep 04, 2024 14:56 BUBBA BRISCOE MD Sep 12, 2024 00:35
[2024-09-04] MEDS: FLORASTOR (S. BOULARDII) 250 MG CAP PO SCH (16:31)
[2024-09-04] MEDS: LOPERAMIDE HCL 2 MG CAP/TAB PO ONE (16:31)
[2024-09-04] MEDS: PSYLLIUM PWD 5.8GM PKG PO ONE (16:31)
[2024-09-04 17:00] VITALS: BP 121/61; PULSE 90; RESP 18; TEMP 98.3; O2SAT 96
[2024-09-04 21:00] VITALS: BP 112/61; PULSE 92; RESP 17; TEMP 97.3; O2SAT 93
[2024-09-05 01:00] VITALS: BP 112/52; PULSE 73; RESP 18; TEMP 97.1; O2SAT 97
[2024-09-05 05:00] VITALS: BP 120/71; PULSE 99; RESP 17; TEMP 98.3; O2SAT 97
[2024-09-05 06:42] LABS: Hematocrit 36.2 % (41.0-53.0); Hemoglobin 12.4 g/dL (13.5-17.5); Mean Corpuscular Hemoglobin 29.9 pg (28.0-32.0); Mean Corpuscular Hgb Conc. 34.3 g/dL (32.0-36.0); Mean Corpuscular Volume 87.1 fL (80.0-100.0); Platelet Count (auto) 396 10^3/uL (140-450); Red Blood Cells 4.15 10^6/uL (4.5-5.90); Red Cell Distribution Width 14.1 % (11.8-14.3); White Blood Cell 7.4 10^3/uL (4.4-10.8)
[2024-09-05 07:02] LABS: Basophils % (manual) 0 (0.0-2.0); Blast Cells 0; Eosinophils % (manual) 0 (0-7); Metamyelocytes % 0; Myelocytes % 0; Promyelocytes % 0; Reactive Lymphocytes 0
[2024-09-05 08:16] LABS: Chloride 110 mmol/L (98-107); Potassium 3.2 mmol/L (3.5-5.1); Sodium 144 mmol/L (136-145)
[2024-09-05 08:17] LABS: Anion Gap 14 (5-15); Calcium 10.3 mg/dL (8.7-10.4); Carbon Dioxide 20 mmol/L (20-31)
[2024-09-05 08:22] LABS: BUN/Creatinine Ratio 16.7 (10.0-20.0); Blood Urea Nitrogen 14 mg/dL (9-23); Glucose 115 mg/dL (74-106)
[2024-09-05 08:34] LABS: Band Neutrophils % (manual) 5; Lymphocytes % (manual) 14 (10.0-50.0)
[2024-09-05 08:35] LABS: Monocytes % (manual) 23 (0-12); Platelet Estimate Adequate; RBC Morphology Normal
[2024-09-05 09:00] VITALS: BP 91/55; PULSE 71; RESP 17; TEMP 98.3; O2SAT 98
[2024-09-05 13:00] VITALS: BP 104/45; PULSE 89; RESP 17; TEMP 98.1; O2SAT 99
[2024-09-05 16:52] VITALS: BP 128/76; PULSE 102; RESP 15; TEMP 97.4; O2SAT 97
[2024-09-05] MEDS: POTASSIUM EFFERVESENT TAB 25 MEQ PO ONE (17:44)
[2024-09-05 21:00] VITALS: BP 107/63; PULSE 100; RESP 17; TEMP 97.5; O2SAT 97
--- NOTE | 2024-09-05 21:32 | DVHPNRES ---
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 Patient reported that tell about 3 weeks ago he was having dark-colored stools since then he started having yellow stools in consistency gradually started getting worse with patient having diarrhea for about past 10 days. Patient reported that his last chemotherapy was done 2 days ago. Patient did not report fever, chills. Patient reports decreased appetite and feeling nauseous and reflux. CBC showed mild anemia, BMP showed mild hypokalemia. Past medical history: Patient was admitted to the hospital in July 01, 2023 with a melena and blood in vomitus following which EGD was done patient was diagnosed with gastric adenocarcinoma on chemotherapy. Another upper endoscopy was done in March 31, 2024 which showed persistent progressive large pre-pyloric antral ulcerated mass with a raised edges which was causing partial gastric outlet obstruction. Past surgical history: Endoscopy x2 Social history: Patient denies smoking, alcohol, drug use Review of systems 08/31- Patient seen and examined at the bedside. Patient is alert and oriented to time, place and person. Patient reports feeling nauseous and decreased appetite. Patient reports multiple bouts of diarrhea, no blood in stool, watery, yellowish in color. Patient reports no fever, chills. Patient reports feeling weak but is able to walk without support to the restroom and back. Patient's blood pressure at the time of examination 109/63 mmHg, pulse 75 per minute regular, saturating 95% at room air. 09/01- patient is alert and oriented to, place and person. Patient reports does not report feeling nauseous and reports that he drank the ensure protein without feeling abdominal pain, nausea, vomiting. Patient reports that his diarrhea is also coming down with a few episodes but it is still watery. Patient denies abdominal pain, fever, chills. 09/02- patient is alert and oriented to time, place and person. Patient reported that overnight he had 1 episode of vomiting after drinking water probably too quickly. No episode of vomiting since the morning and patient has tolerated liquids like water, jello, ensure protein in small amounts without nausea or vomiting. Patient reported multiple bouts of diarrhea over night throughout the day. Denies abdominal pain, fever, chills. Patient was requested to get a contact number from is a girlfriend who he reported will come to visit him at around 5-6 p.m. in the evening so that his condition could be explained better to his kin. 09/03- patient was time, place and person. Patient reported that he had 1 episode of vomiting early in the morning and 2 episodes of watery diarrhea in the morning. C diff negative, stool culture negative, stool WBCs. Nurse reported that the patient in the morning had an episode of dizziness ? Loss of conscious while standing after he returned from the restroom after brushing his teeth. Patient did not hit his head and was caught by the proposal manager writer and placed on to the bed. Patient was hypotensive and was given a bolus of 500 mL of Ringer's lactate. Patient was encouraged to drink ensure protein . 09/05- patient was alert and oriented to time, place and person. Patient reported that he had 2 episode of vomiting overnight 1 of them which was light brown in color and throughout day till in the evening and 1 episode of watery diarrhea. Patient's vitals were stable. Patient able to drink small amount of water and ensure protein liquid. Patient denied abdominal pain, shortness of breath, chest pain, dizziness. Potassium was low which was replaced with fifty mEq effervescent tab. Objective vital signs Vital Sign Date Time Temp Pulse Resp B/P (MAP) Pulse Ox O2 Delivery O2 Flow Rate FiO2 09/05/24 21:00 97.5 100 17 107/63 (78) 97 97.5 09/05/24 07:30 Room Air* 0 21 Total Intake and Output 09/04/24 09/04/24 09/05/24 15:00 23:00 07:00 Intake Total 50 ml 375 ml 750 ml Output Total 600 ml Balance 50 ml 375 ml 150 ml medications Current Medications Medications Dose Ordered Sig/Jeronimo Route Start Time Stop Time Status Last Admin Dose Admin Acetaminophen/ Codeine Phosphate 1 tab TIDP PO 08/30/24 14:00 Hold Pantoprazole Sodium 40 mg BID PO 08/30/24 22:00 09/05/24 21:22 40 MG Sucralfate 1 gm QIDACHS PO 08/30/24 17:00 09/05/24 21:22 1 GM Tamsulosin HCl 0.4 mg QPM PO 08/30/24 18:00 09/05/24 17:45 0.4 MG Patient Own Medication 1 tab BID PO 08/30/24 22:00 09/05/24 21:22 1 TAB Patient Own Medication 1 tab DAILY PO 08/31/24 10:00 09/05/24 09:24 1 TAB Ferrous Sulfate 325 mg BIDBRS PO 08/30/24 18:00 09/05/24 17:45 325 MG Patient Own Medication 50 mg DAILY TD 08/31/24 10:00 Hold Patient Own Medication 0.5 mg DAILY INJ 08/31/24 10:00 Hold Lorazepam 0.5 mg Q6HP PRN PO 08/30/24 12:15 Al Hydrox/Mg Hydrox/Simethicone 30 ml Q6HP PRN PO 08/30/24 12:15 Docusate Sodium 100 mg BIDPRN PRN PO 08/30/24 12:15 Acetaminophen 650 mg Q6HP PRN PO 08/30/24 12:15 Acetaminophen/ Hydrocodone Bitart 1 tab Q4HP PRN PO 08/30/24 12:15 08/31/24 10:46 1 TAB Ondansetron HCl 4 mg Q4HP PRN IV 08/30/24 12:15 09/05/24 12:33 4 MG Morphine Sulfate 2 mg Q4HPRN PRN IV 08/30/24 12:15 Ceftriaxone Sodium 50 ml @ 100 mls/hr DAILY@09 IV 08/30/24 19:15 09/05/24 09:21 100 MLS/HR Cyanocobalamin 1,000 mcg DAILY PO 08/31/24 10:45 09/05/24 09:22 1,000 MCG Prochlorperazine Maleate 5 mg TIDP PRN PO 08/31/24 15:30 Enteral Nutritional Formula 240 ml BIDWM PO 08/31/24 18:00 09/04/24 18:00 240 ML Enteral Nutritional Formula 240 ml TIDWM PO 09/02/24 12:00 09/05/24 18:00 240 ML Patient Own Medication 550 mg DAILY PO 09/03/24 10:00 09/05/24 09:23 550 MG Diagnostic Test (Pha) 1 strip Q6HR 09/02/24 18:00 Cancel Insulin Human Regular FOLLOW SLIDING SCALE Q6HR SC 09/02/24 18:00 Cancel Dextrose 50 ml UD IV 09/02/24 17:00 Cancel Loperamide HCl 2 mg PRN PRN PO 09/04/24 13:30 Saccharomyces Boulardii 250 mg DAILY PO 09/04/24 13:30 09/05/24 09:21 250 MG Examination Gen - no pallor, no icterus, no cyanosis, no clubbing, no LAD, no edema . Patient is cachectic with temporal wasting, scaphoid abdomen, muscle wasting in the hand and the feet. Skin - Patients skin is warm and dry. HEENT - normocephalic, atraumatic, dry mucous membranes with bruising on the lower lip. Neck - full ROM, no LAD, no JVD Pulmonary - B/L vesicular breath sounds. no crackles , no wheezing, no stridor. cardiovascular - normal S1,S2 heard. no murmurs heard. peripheral pulses normal radial 2+, pedal 2+. capillary refill normal <2 secs. GI - scaphoid, soft abdomen without tenderness to palpation . no hepatospleenomegaly. Bowel sounds + Neurological - Patient is A/O X 3 . Bilateral upper extremity strength 4/5, bilateral lower extremity strength 4/5, no facial droop, normal speech, no tremor, no sensory deficiets. laboratory and microbiology Laboratory Tests 09/05/24 05:39 Test 09/05/24 05:39 Range/Units Serum Glucose 115 H 74-106 mg/dL Microbiology Date/Time Source Procedure Growth Status 09/01/24 10:25 Stool Stool Culture - Final Complete 09/01/24 10:25 Stool Shiga Toxin I & II - Final Complete 09/01/24 04:15 Voided Urine Urine Culture - Final Complete Problem List/Assessment/Plan Problem List/Assessment/Plan Assessment and plan # Intractable nausea # 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 and prochlorperazine p.r.n. for nausea - Protonix 40 mg b.i.d. p.o. - sucralfate 1 g q.i.d. -full liquid diet and ensure protein # Acute diarrhea likely due to ?chemotherapy induced ? Acute infectious - no blood in stool, H&H stable - C diff negative - stool WBCs negative - shiga toxin negative - no Campylobacter antigen detected - patient on ceftriaxone IV 1 g daily - IV fluids - 1 dose of loperamide given on 09/03 - Continue Lopressor ointment p.r.n. - Continue Metamucil, continue Florastor # 09/02- metabolic acidosis with anion gap - likely due to starvation, ketosis - patient was encouraged to drink oral fluids and supplements - monitor # UTI likely acute cystitis - UA shows positive leukocyte esterase and elevated WBC - urine culture pending - on ceftriaxone 1 g IV daily #Hypokalemia #Hypomagnesemia Monitor and replete # History of BPH - on tamsulosin once daily #Common bile duct dilation - on ultrasound Questionable common bile duct is seen which is abnormally dilated measuring up to 1.7 cm - bilirubin level within normal limit - cholelithiasis without evidence of cholecystitis 09/05- patient has been accepted by hospice care and will be discharged tomorrow on 09/06/24. Goals of care discussed with the patient for over 20 minutes. Full code. Plan discussed with Dr. Lentz Plan discussed with: Patient Dietary Evaluation Review Comments: 1) Advance pt diet when medically feasible 2) Continue current plan of care Expected Outcomes/Goals: F/U in 3-5 days Date of Service: Sep 05, 2024 Billing Provider: BUBBA BRISCOE MD Common Visit Codes: [id number] INP/OBS CARE(HIGH) SHAWN HOLMAN RESIDENT Sep 05, 2024 21:32 BUBBA BRISCOE MD Sep 12, 2024 00:24
[2024-09-06 00:53] VITALS: BP 110/78; PULSE 96; RESP 15; TEMP 97.4; O2SAT 97
[2024-09-06 05:00] VITALS: BP 122/69; PULSE 118; RESP 16; TEMP 97.5; O2SAT 98
[2024-09-06 06:45] LABS: Chloride 111 mmol/L (98-107); Potassium 3.1 mmol/L (3.5-5.1); Sodium 147 mmol/L (136-145)
[2024-09-06 06:46] LABS: Calcium 11.6 mg/dL (8.7-10.4)
[2024-09-06 06:50] LABS: Glucose 120 mg/dL (74-106)
[2024-09-06 06:51] LABS: BUN/Creatinine Ratio 16.7 (10.0-20.0); Blood Urea Nitrogen 16 mg/dL (9-23)
[2024-09-06 07:17] LABS: Mean Corpuscular Hgb Conc. 34.1 g/dL (32.0-36.0); Mean Corpuscular Volume 87.9 fL (80.0-100.0); Platelet Count (auto) 424 10^3/uL (140-450); Red Blood Cells 4.66 10^6/uL (4.5-5.90); Red Cell Distribution Width 14.3 % (11.8-14.3); White Blood Cell 10.6 10^3/uL (4.4-10.8)
[2024-09-06 07:19] LABS: Basophils % (manual) 0 (0.0-2.0); Blast Cells 0; Eosinophils % (manual) 0 (0-7); Metamyelocytes % 0; Myelocytes % 0; Promyelocytes % 0; Reactive Lymphocytes 0
[2024-09-06 07:49] LABS: Anion Gap 14 (5-15); Carbon Dioxide 22 mmol/L (20-31)
[2024-09-06] MEDS: POTASSIUM EFFERVESENT TAB 25 MEQ PO ONE (08:44)
[2024-09-06 09:00] VITALS: BP 122/78; PULSE 99; RESP 18; TEMP 97.8; O2SAT 96
[2024-09-06 09:05] LABS: Lymphocytes % (manual) 17 (10.0-50.0); Monocytes % (manual) 18 (0-12); Platelet Estimate Adequate
[2024-09-06 09:07] LABS: Band Neutrophils % (manual) 2
--- NOTE | 2024-09-06 10:32 | DVHDSRES ---
Discharge Summary Date of Admission Resident Creating Document: SHAWN HOLMAN RESIDENT Aug 30, 2024 at 12:15 Date of Discharge: Sep 06, 2024 Admitting Diagnosis Weakness N&V (nausea and vomiting) Gastric adenocarcinoma Projectile vomiting with nausea Wounds: no wounds Labs/Diagnostic Data: Laboratory Results Test 09/06/24 06:04 09/05/24 05:39 09/05/24 03:16 09/03/24 10:08 White Blood Count 10.6 10^3/uL (4.4-10.8) Red Blood Count 4.66 10^6/uL (4.5-5.90) Hemoglobin 14.0 g/dL (13.5-17.5) Hematocrit 41.0 % (41.0-53.0) Mean Corpuscular Volume 87.9 fL (80.0-100.0) Mean Corpuscular Hemoglobin 30.0 pg (28.0-32.0) Mean Corpuscular Hemoglobin Concent 34.1 g/dL (32.0-36.0) Red Cell Distribution Width 14.3 % (11.8-14.3) Platelet Count 424 10^3/uL (140-450) Mean Platelet Volume 7.7 fL (6.9-10.8) Neutrophils (%) (Auto) % (37.0-80.0) Lymphocytes (%) (Auto) % (10.0-50.0) Monocytes (%) (Auto) % (0.0-12.0) Basophils (%) (Auto) % (0.0-2.0) Neutrophils # (Auto) 10 ^3/uL (1.6-8.6) Lymphocytes # (Auto) 10 ^3/uL (0.4-5.4) Monocytes # (Auto) 10 ^3/uL (0-1.3) Differential Total Cells Counted 100.0 (100) Neutrophils % (Manual) 63 (37.0-80.0) Band Neutrophils % (Manual) 2 Lymphocytes % (Manual) 17 (10.0-50.0) Monocytes % (Manual) 18 (0-12) Eosinophils % (Manual) 0 (0-7) Basophils % (Manual) 0 (0.0-2.0) Metamyelocytes % (manual) 0 Myelocytes % (Manual) 0 Promyelocytes % (Manual) 0 Blast Cells % (Manual) 0 Reactive Lymphocytes 0 Platelet Estimate Adequate Sodium Level 147 mmol/L (136-145) Potassium Level 3.1 mmol/L (3.5-5.1) Chloride Level 111 mmol/L (98-107) Carbon Dioxide Level 22 mmol/L (20-31) Anion Gap 14 (5-15) Blood Urea Nitrogen 16 mg/dL (9-23) Creatinine 0.96 mg/dL (0.700-1.30) Glomerular Filtration Rate Calc 76 mL/min (>90) BUN/Creatinine Ratio 16.7 (10.0-20.0) Serum Glucose 120 mg/dL (74-106) Calcium Level 11.6 mg/dL (8.7-10.4) Red Blood Cell Morphology Normal Magnesium Level 1.8 mg/dL (1.6-2.6) Stool Occult Blood Positive (Negative) Stool Occult Blood Sample #3 (Negative) POC Glucose 111 mg/dl (70-106) Test 09/03/24 05:30 09/02/24 10:21 09/02/24 04:29 09/01/24 10:25 Eosinophils (%) (Auto) 0.5 % (0.0-7.0) Eosinophils # (Auto) 0 10 ^3/uL (0-0.8) Basophils # (Auto) 0 10 ^3/uL (0-0.2) Nucleated Red Blood Cells 0.2 % Lactic Acid Level 1.1 mmol/L (0.4-2.0) Giant Platelets Few Stool for White Cells None seen Test 09/01/24 06:00 08/31/24 06:26 08/30/24 11:00 08/30/24 10:24 Total Bilirubin 0.4 mg/dL (0.2-1.0) Aspartate Amino Transferase (AST) 22 U/L (13-40) Alanine Aminotransferase (ALT) 27 U/L (7-40) Alkaline Phosphatase 94 U/L (46-116) Total Protein 5.0 g/dL (5.7-8.2) Albumin 3.1 g/dL (3.2-4.8) Vitamin B12 Level > 4000 pg/mL (211-911) Vitamin D 25-Hydroxy 58.6 ng/mL (30.0-100) Thyroid Stimulating Hormone (TSH) 1.38 uIU/mL (0.55-4.78) Reticulocyte Count (auto) 0.89 % (0.5-1.5) Iron Level 60 ug/dL (65-175) Total Iron Binding Capacity 175 ug/dL (250-425) Percent Iron Saturation 34.3 % (20-55) Ferritin 164.0 ng/mL (22-322) Lactate Dehydrogenase 177 U/L (120-246) Troponin I High Sensitivity 9 ng/L (</=54) Urine Color Yellow (Yellow) Urine Clarity Clear (Clear) Urine pH 6.0 (5.0-9.0) Urine Specific Lyn[place] 1.027 (1.001-1.035) Urine Protein Trace (Negative) Urine Ketones 3+ (Negative) Urine Blood Negative /uL (Negative) Urine Nitrite Negative (Negative) Urine Bilirubin Negative (Negative) Urine Urobilinogen Normal mg/dL (Negative) Urine Leukocyte Esterase 1+ /uL (Negative) Urine RBC 4 /hpf (0 - 3) Urine WBC 14 /hpf (0 - 3) Urine Squamous Epithelial Cells Few /hpf (<5) Urine Bacteria None seen /hpf (None Seen) Urine Hyaline Casts Few /lpf (0 - 2) Urine Mucus Few (None Seen) Urine Glucose Normal mg/dL (Normal) Other Laboratory Tests 09/06/24 06:04 Brief Hx & Hospital Course: Patient is a 89-year-old male with a past medical history of 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 Patient reported that tell about 3 weeks ago he was having dark-colored stools since then he started having yellow stools in consistency gradually started getting worse with patient having diarrhea for about past 10 days. Patient reported that his last chemotherapy was done 2 days ago. Patient did not report fever, chills. Patient reports decreased appetite and feeling nauseous and reflux. CBC showed mild anemia, BMP showed mild hypokalemia. Hospital course Patient reported that he was diagnosed with gastric adenocarcinoma 1 year ago when he had endoscopy done in June 2023. Patient was advised to follow up in the [facility] for further management with the patient was not very compliant. Repeat endoscopy was done in March 2024 which showed persistent progressive large pre-pyloric ulcerated mass with raised edges causing partial gastric outlet obstruction. Patient reported that he recently started chemotherapy with the Heme-Onc in the outpatient. During the hospital stay patient had nausea and multiple episodes of vomiting, no blood in vomitus, which were treated conservatively with oral antiemetics as needed, Protonix, sucralfate. Patient had multiple episodes of watery diarrhea, no stool occult blood, C diff negative stool WBCs negative, shiga toxin negative, no Campylobacter antigen detected. Patient likely had acute diarrhea due to recent on chemotherapy and was given methimazole and Florastor. Patient was given IV fluid hydration and was put on clear liquid diet. Patient tolerated minimal amount of diet and if he tried to drink more fluids he had episodes of vomiting. Patient's condition was explained to him and his partner and son in detail and they agreed for hospice care. Patient was discharged in stable condition to home on hospice. Consults/Reason for consult NO consultation Operations or Procedures Chest X ray showing No acute cardiopulmonary disease. Renal US showing Questionable common bile duct is seen which is abnormally dilated measuring up to 1.7 cm. Cholelithiasis without evidence of cholecystitis. No hydronephrosis or nephrolithiasis. Condition at Discharge: Fair Final Diagnosis/Problems List # Intractable nausea # H/O Gastric adenocarcinoma with pre-pyloric mass causing partial gastric outlet obstruction as per recent upper endoscopy 03/2024 # Weight loss # Acute diarrhea likely due to ?chemotherapy induced ? Acute infectious # 09/02- metabolic acidosis with anion gap # UTI likely acute cystitis #Hypokalemia #Hypomagnesemia # History of BPH #Common bile duct dilation Discharge Disposition: Hospice - Home Discharge Instruct/Medications Diet: Regular Diet comment: Continue Liquid diet as tolerated Activity: No Restrictions, As Tolerated Follow Up/Referral: Follow up with the Hospice physician Medications: as per EMR Discharge Statement: "Patient was advised to return to the ER or call 911 if any headaches, dizziness, shortness of breath, chest pain, abdominal pain, bleeding, fevers, or worsening of medical condition. Patient was counseled about treatment plan, medications, possible side effects, patientverbalized understanding. All questions were answered to the best of my ability. This discharge took greater then 30 minutes in planning, reviewing documentation, counseling the patient, and discussing with other team members." ASSESSMENT ASSESSMENT Assessment # Intractable nausea # H/O Gastric adenocarcinoma with pre-pyloric mass causing partial gastric outlet obstruction as per recent upper endoscopy 03/2024 # Weight loss # Acute diarrhea likely due to ?chemotherapy induced ? Acute infectious # 09/02- metabolic acidosis with anion gap # UTI likely acute cystitis #Hypokalemia #Hypomagnesemia # History of BPH #Common bile duct dilation Date of Service: Sep 06, 2024 Billing Provider: BUBBA BRISCOE MD Common Visit Codes: 26037-ZFV/OBS DISCH DAY >30min SHAWN HOLMAN RESIDENT Sep 06, 2024 10:32 BUBBA BRISCOE MD Sep 12, 2024 00:10
== END 2024-09-06 10:00 | disposition hospice, home (50) | DRG 394 ==
LOC: ER 07:37 → EDBD 07:37 → OVERFLOW 12:15 → WEST WING 22:03
PROVIDERS: ADMIT Student in an Organized Health Care Education/Training Program; ATTEND Student in an Organized Health Care Education/Training Program
DX: K52.1 Toxic gastroenteritis and colitis (principal); A09 Infectious gastroenteritis and colitis, unspecified; E87.20 Acidosis, unspecified; N30.00 Acute cystitis without hematuria; K31.1 Adult hypertrophic pyloric stenosis; R65.10 Systemic inflammatory response syndrome (SIRS) of non-infectious origin without acute organ dysfunction; E44.0 Moderate protein-calorie malnutrition; Z51.5 Encounter for palliative care; I95.9 Hypotension, unspecified; E87.6 Hypokalemia; E83.42 Hypomagnesemia; N40.0 Benign prostatic hyperplasia without lower urinary tract symptoms; K83.8 Other specified diseases of biliary tract; Z85.028 Personal history of other malignant neoplasm of stomach; T45.1X5A Adverse effect of antineoplastic and immunosuppressive drugs, initial encounter; Y92.89 Other specified places as the place of occurrence of the external cause; Z79.899 Other long term (current) drug therapy; R63.4 Abnormal weight loss; Z68.23 Body mass index [BMI] 23.0-23.9, adult; R11.2 Nausea with vomiting, unspecified
CPT/HCPCS: 36415; 71045; 76775; 80048; 80053; 81001; 82270; 82306; 82607; 82728; 82962; 83540; 83550; 83605; 83615; 83735; 84443; 84484; 85007; 85025; 85027; 85045; 85048; 87045; 87086; 87177; 87427; 87493; 93005; 96361; 96365; 97163; G0378; J2003; J2405